=== PATIENT | male | born 1960 | race Caucasian/White ===

== ENCOUNTER → 2017-10-20 | Outpatient (CLI) | payer BC | END | disposition home or self-care (01) | LOC: LABWHC1 17:14 | PROVIDERS: ATTEND Orthopaedic Surgery | DX: Z01.812 Encounter for preprocedural laboratory examination (principal) | CPT/HCPCS: 87070 ==

== ENCOUNTER 2017-10-31 05:40 | Day surgery (SDC) | payer BC, OTHER ==
[2017-10-25 14:42] VITALS: BMI 28.3
--- NOTE | 2017-10-30 13:19 | HP ---
HISTORY AND PHYSICAL REASON FOR ADMISSION: Surgery scheduled for 10/31/2017. Keith Espinoza is a 57-year-old patient seen with symptomatic right knee osteoarthritis. We discussed options. He elected to proceed with right total knee arthroplasty. Consent regarding the procedure was obtained. Medical clearance provided by Dr. Lee Berrios. PAST MEDICAL HISTORY: Hypertension. PAST SURGICAL HISTORY: Herniorrhaphy, left total knee arthroplasty. MEDICATIONS: Lisinopril/hydrochlorothiazide. ALLERGIES: BENADRYL. SOCIAL HISTORY: Patient denies tobacco use. PHYSICAL EXAMINATION: Evaluation of the right knee range of motion is -3 to 115 degrees. Tenderness medial joint line. Positive medial Jojo's. Crepitus along the medial patellofemoral compartments with range of motion. Pain with patellofemoral compression. Ligaments stable. Hip rotation without pain. Distal neurovascular exam intact. RADIOGRAPHS: Right knee severe medial moderate patellofemoral compartment osteoarthritis. IMPRESSION: 1. Right knee osteoarthritis. 2. Hypertension. PLAN: Right total knee arthroplasty. Surgery scheduled 10/31/2017. MMODL / IJN: [id number] /
[~2017-10-31 05:40] MED LIST: ACETAMINOPHEN TAB 500 MG TAB PO ONE; DEXAMETHASONE SOD PHOSPHATE 10 MG/ML 1 ML VIAL IV ONE; LACTATED RINGERS 1,000 ML IV SCH; LIDOCAINE 1% 20 ML VIAL (10MG/ML) FOR IV START INTRADERMA PRN; MELOXICAM 7.5 MG TAB PO ONE; MIDAZOLAM 2 MG/2 ML VIAL IV PRN; ONDANSETRON 4 MG/2 ML VIAL IVP ONE; TRANEXAMIC ACID 1,000 MG in SODIUM CHLORIDE 0.9% 50 ML IVPB ONE; ceFAZolin IN SWFI 2 GM/20 ML SYRINGE IVP ONE; fentaNYL (PF) 50 MCG/ML 2 ML AMP IV PRN
[2017-10-31 06:23] VITALS: RESP 16
[2017-10-31] MEDS ORDERED: MIDAZOLAM 2 MG/2 ML VIAL ONE ×2 (06:30→07:08)
[2017-10-31] MEDS ORDERED: ONDANSETRON 4 MG/2 ML VIAL ONE (06:31)
[2017-10-31] MEDS ORDERED: fentaNYL (PF) 50 MCG/ML 2 ML AMP IV ONE (06:40)
[2017-10-31] MEDS ORDERED: GABAPENTIN 300 MG CAP PO STA (06:56)
[2017-10-31] MEDS ORDERED: ROPIVACAINE 1,100 MG, SODIUM CHLORIDE 0.9% 330 ML MISCELLANE PRN ×2 (07:00)
[2017-10-31] MEDS ORDERED: ROPIVACAINE 246.25 MG, EPINEPHrine 0.5 MG, KETOROLAC 30 MG, cloNIDine HCL/PF 80 MCG, WA... MISCELLANE ONE ×5 (07:05)
[2017-10-31] MEDS ORDERED: TRANEXAMIC ACID 1,000 MG/10 ML VIAL ONE (07:08)
[2017-10-31] MEDS ORDERED: fentaNYL (PF) 50 MCG/ML 2 ML AMP ONE (07:08)
[2017-10-31] MEDS ORDERED: LIDOCAINE 1% INJ 10MG/ML (20 ML MDV) ONE (07:08)
[2017-10-31] MEDS ORDERED: PROPOFOL 10 MG/ML 20 ML VIAL IV ONE (07:08)
[2017-10-31] MEDS ORDERED: SODIUM CHLORIDE 0.9% 100 ML BAG ONE (07:08)
[2017-10-31] MEDS ORDERED: SUCCINYLCHOLINE CHLORIDE 100 MG/5 ML SYR IV ONE (07:08)
[2017-10-31] MEDS ORDERED: LACTATED RINGERS 1,000 ML IV ONE ×2 (08:05→11:41)
[2017-10-31] MEDS ORDERED: ceFAZolin 3,000 MG in SODIUM CHLORIDE 0.9% IRRIGATIO 3,000 ML IRRIGATION ONE (08:06)
--- NOTE | 2017-10-31 08:44 | P.ONQ ---
Anesthesiology Proc Note - PNB - Peripheral Nerve Block Performed Right Adductor Canal Infusion Time Out Performed: Yes (635) Procedure Start Time: 06:36 Procedure Stop Time: 06:45 Indication: Acute Post-Operative Pain, Dx/Pain Location (Right Knee Pain), Requested by physician Sedation Type: Sedate with meaningful contact maintained Preparation: Sterile Prep Position: Supine Catheter: Indwelling Needle Types: On-Q Needle Size: 100mm (4") Needle Gauge: 21 Technique: Ultrasound Injectate: 0.5% Ropivacaine (see comment for volume) (30ml) Blood Aspirated: No Pain Paresthesia on Injection Noted: No Resistance on Injection: Normal Events: Uneventful and Well Tolerated
--- NOTE | 2017-10-31 09:08 | P.OP ---
Date of Procedure: 10/31/17 Preoperative Diagnosis: Right knee osteoarthritis Postoperative Diagnosis: Right knee osteoarthritis Procedure(s) Performed: Right total knee arthroplasty Implants: 1. Microport evolution MP CS/CR size 6 cemented femoral component 2. Microport evolution MP 6+ right cemented keeled tibial baseplate 3. Microport evolution MP CS size 6 right 14 mm polyethylene tibial insert 4. Microport advance 41 mm all polyethylene cemented patella Anesthesia: GETA, regional (Abductor canal catheter), local Surgeon: Franki De La Garza De Alcoholizer #1: Benedicto Padilla Estimated Blood Loss (ml): 50 Pathology: other (On) Condition: stable Disposition: PACU Indications for Procedure: 57-year-old patient seen with symptomatic right knee osteoarthritis. After treatment options were discussed, he elected to proceed with total knee arthroplasty. Operative Findings: see description of procedure Description of Procedure: Patient was taken to the operative suite after having and adductor canal catheter placed by the department of anesthesia. Patient underwent a general anesthetic by the department of anesthesia. Patient was given preoperative IV intake antibiotics and TXA. A well-padded tourniquet was placed about the [] lower extremity. The lower extremity was then prepped and draped in the normal sterile orthopedic fashion. The extremity was elevated, a tourniquet was insufflated to 300. A standard anterior incision was made sharply through skin. Dissection was taken down through the subcutaneous soft tissues down to the extensor mechanism. A medial arthrotomy was performed, patella was everted and knee was flexed. There was advanced osteoarthritis noted. A proximal tibial cutting guide was positioned. Proximal tibial cut was made. A distal intramedullary femoral cutting guide was positioned, distal femoral cut made. We placed the appropriate sizing guide and selected the appropriate size. A distal 4-in-1 femoral cutting block was positioned, distal femoral cuts were made. We now placed a trial femoral component into position, along with an appropriate size tibial tray and insert. We now took the knee through range of motion and had full extension good flexion and good overall soft tissue balance noted. The patella was everted and a flush cut made with patellar quad tendon. We templated the patella, appropriate drill holes were made. An appropriate trial patella was positioned, knee was taken through full range of motion with the patella tracking very nicely. The trial patella was removed. Drill holes were made through the femoral component. All trial components were removed after marking off the appropriate rotation of the tibia. Retractors were now positioned along the proximal tibia. An appropriate keel punch was made with the appropriate size tibial guide. At this point appropriate size implants were chosen and opened. The joint was irrigated copiously with pulse lavage mechanical irrigation. The deep soft tissues were infiltrated local analgesic. We mixed antibiotic methylmethacrylate. Once the methyl methacrylate was ready, the tibial component was cemented into place removing any excess methylmethacrylate. The femoral component was cemented into place removing the removing any excess methylmethacrylate. We then inserted the appropriate size polyethylene tibial insert. We made sure that it was locked into position. We took the knee into full extension, and then back in a flexion making sure we had removed any excess methylmethacrylate. The patellar component was then cemented down and secured with clamp. Excess methylmethacrylate removed. We kept the knee in full extension, patellar clamp in position until methylmethacrylate had hardened. Once it had hardened the patellar clamp was removed. The knee was taken through full range of motion. The patella tracked nicely. There was good soft tissue balancing. The tourniquet was now released. A second gram of TXA was given. Additional hemostasis was achieved via electrocautery. The wound was irrigated with pulse lavage mechanical irrigation. The superficial soft tissues were infiltrated with local analgesic. The extensor mechanism was repaired with Vicryl. We checked the repair with range of motion and it was stable. The subcutaneous soft tissues were repaired with Vicryl in layers. The skin was approximated with pernio/ Dermabond. Sterile dressings were applied followed by loose web roll and Heath bandage. The patient was transferred to a bed, and taken to recovery in stable and satisfactory condition. Cachorro TEIXEIRA assisted with the procedure.
[2017-10-31 09:34] VITALS: TEMP 97.6
[2017-10-31] MEDS ORDERED: HYDROcodone/APAP 7.5-325MG 1 EACH TAB PO PRN (09:38)
[2017-10-31] MEDS ORDERED: HYDROmorphone 1 MG/ML 1 ML SYRINGE IM PRN ×2 (09:40)
[2017-10-31] MEDS ORDERED: LACTATED RINGERS 1,000 ML IV SCH (09:45)
[2017-10-31] MEDS ORDERED: HYDROmorphone 0.5 MG/0.5 ML SYRINGE IVP ONE (10:02)
[2017-10-31] MEDS ORDERED: ceFAZolin 1,000 MG in DEXTROSE/WATER 1 50ML.BAG IVPB ONE (11:00)
[2017-10-31] MEDS ORDERED: ceFAZolin IN SWFI 2 GM/20 ML SYRINGE IVP SCH ×2 (12:30→15:30)
[2017-10-31] MEDS ORDERED: traMADol 50 MG TAB PO SCH (13:00)
--- NOTE | 2017-10-31 13:14 | XR ---
EXAMINATION TYPE: XR knee limited RT DATE OF EXAM: 10/31/2017 COMPARISON: NONE HISTORY: 57-year-old male status post right TKA TECHNIQUE: 2 views FINDINGS: Images show placement of right total knee arthroplasty. Both distal femoral and proximal tibial compo nents of the prosthesis are well seated without periprosthetic fracture. Alignment grossly anatomic. Anterior soft tissue air with soft tissue swelling as well as intra-articular air in joint effusion r elated to recent operation. IMPRESSION: Uncomplicated postoperative appearance right total knee arthroplasty.
[2017-10-31 14:55] VITALS: BP 114/61; PULSE 69
== END 2017-10-31 15:49 | disposition home health service (06) ==
LOC: OR 05:40
PROVIDERS: ATTEND Orthopaedic Surgery
DX: M17.11 Unilateral primary osteoarthritis, right knee (principal); Z96.651 Presence of right artificial knee joint; I10 Essential (primary) hypertension; F17.200 Nicotine dependence, unspecified, uncomplicated; Z79.899 Other long term (current) drug therapy; Z91.09 Other allergy status, other than to drugs and biological substances
CPT/HCPCS: 97116; 97161; 88300; 73560; 27447; C1776; C1713; C1772; J2250; J0171; J1100; J2405; J0690 ×3; J3010; J1885; J2795; J0735; J1170

== ENCOUNTER 2018-10-24 08:59 | Emergency (ER) | payer BC, OTHER ==
[2018-10-24 09:07] VITALS: TEMP 97.6
[2018-10-24] MEDS ORDERED: KETOROLAC 60 MG/2 ML VIAL IM STA (09:27)
--- NOTE | 2018-10-24 10:21 | XR ---
EXAMINATION TYPE: XR Hip LT and AP Pelvis DATE OF EXAM: 10/24/2018 COMPARISON: NONE HISTORY: Pain, trauma TECHNIQUE: A single AP view of the pelvis is obtained. Two views of the left hip are obtained. FINDINGS: There is no acute fracture/dislocation evident in the pelvis. The hip and sacroiliac join ts appear symmetric and unremarkable. The overlying soft tissue appears unremarkable. Two views of left hip show no acute fracture or dislocation. No focal lytic or sclerotic lesion seen in the proximal left femur. The overlying soft tissue is unremarkable. IMPRESSION: There is no acute fracture or dislocation in the pelvis or left hip.
--- NOTE | 2018-10-24 10:33 | CT ---
EXAMINATION TYPE: CT brain cspine wo con DATE OF EXAM: 10/24/2018 COMPARISON: CT brain dated 09/17/2009. HISTORY: Fall injury with headache and neck pain. CT DLP: 1478.9 mGycm. Automated Exposure Control for Dose Reduction was Utilized. TECHNIQUE: CT scan of the head and cervical spine are performed without contrast. FINDINGS: There is no acute intracranial hemorrhage, mass effect, or midline shift identified. The ventricles and sulci are within normal limits in size. [place]-white matter differentiation is maintain ed. The globes are intact and the visualized sinuses are clear. The calvarium is intact. Cervical spine is visualized in its entirety from C1 through upper thoracic levels and demonstrates s atisfactory alignment without evidence of acute fracture or dislocation. Prevertebral soft tissue ap pears within normal limits. The C1-C2 articulation is within normal limits on the coronal images. V ertebral body heights are maintained. Mild disc space narrowing and spurring C5-C6 level. Moderate di sc space narrowing and spurring C6-C7 level. Posterior spur disc complex effacing the anterior thecal sac left paracentral location C6-C7 level on sagittal and axial images. Thyroid gland is normal in s ize. Lung apices show respiratory motion artifact degradation IMPRESSION: 1. There is no acute fracture or dislocation evident in the cervical spine. 2. No acute intracranial hemorrhage, mass effect, or midline shift is seen.
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
[2018-10-24 11:21] VITALS: BP 133/92; PULSE 63; RESP 16
== END 2018-10-24 11:26 | disposition home or self-care (01) ==
LOC: EC 08:59
DX: S16.1XXA Strain of muscle, fascia and tendon at neck level, initial encounter (principal); S70.02XA Contusion of left hip, initial encounter; S00.03XA Contusion of scalp, initial encounter; S40.811A Abrasion of right upper arm, initial encounter; N42.9 Disorder of prostate, unspecified; M19.90 Unspecified osteoarthritis, unspecified site; Z88.8 Allergy status to other drugs, medicaments and biological substances; Z79.899 Other long term (current) drug therapy; Z96.652 Presence of left artificial knee joint; W01.0XXA Fall on same level from slipping, tripping and stumbling without subsequent striking against object, initial encounter; Y93.89 Activity, other specified; Y92.69 Other specified industrial and construction area as the place of occurrence of the external cause; Y99.0 Civilian activity done for income or pay
CPT/HCPCS: 73502; 72125; 70450; 99284; 96372; J1885

== ENCOUNTER → 2022-03-16 | Outpatient (CLI) | payer BC ==
--- NOTE | 2022-03-17 07:10 | XR ---
EXAMINATION TYPE: XR finger RT DATE OF EXAM: 03/16/2022 4:20 PM INDICATION: Patient age:Male; 61 years old; Reason for study: M67.40 GANGLION, UNSPECIFIED SITE; COMPARISON: None TECHNIQUE: Frontal, lateral and oblique views of the third digit right hand were obtained. FINDINGS: Mild osteophyte formation of the distal interphalangeal joint of the third digit. Normal al ignment of the visualized joints. No acute osseous pathology is identified. No evidence of soft tis mary swelling. IMPRESSION: 1. No acute osseous pathology. 2. Mild osteoarthrosis of the third digit distal interphalangeal joint.
== END | disposition home or self-care (01) ==
LOC: RADXRMAIN 16:09
PROVIDERS: ATTEND Family Medicine
DX: M19.041 Primary osteoarthritis, right hand (principal); M67.441 Ganglion, right hand

== ENCOUNTER → 2022-10-15 | Outpatient (CLI) | payer BC ==
--- NOTE | 2022-10-17 13:33 | PE ---
EXAMINATION TYPE: PET CT fusion skull to thigh DATE OF EXAM: 10/15/2022 COMPARISON: No pertinent comparisons at this location Prior PET/CT: None at this location HISTORY: Hepatic cancer TECHNIQUE: Following the intravenous administration of 11 mCi of F-18 FDG, whole body images are per formed from the skull base to the midthigh. Images are reviewed on the computer in the coronal, axia l, and sagittal planes. Reconstructed rotating images are created on independent workstation and rev iewed on the computer. A localization and attenuation correction CT is performed in conjunction wit h the PET scan. DLP: 452.79 mGycm SCAN: Initial Blood glucose: 86 mg/dL Average Mediastinum SUV: 1.47 Average Liver SUV: 1.76 FINDINGS: NECK: No abnormal uptake THORAX: No abnormal uptake ABDOMEN: There are scattered areas of increased uptake within the liver including posterior medial ri ght lobe, image 109 SUV value 3.88 right mid liver, image 114 SUV value 2.68. Along the anterior abdominal wall within some ascites is focal intense uptake which may be a curvilin ear area of intraperitoneal and/or omental metastasis, example image 129 SUV value 4.13. This area ex tends through the anterior abdomen into the anterior pelvic wall including the left side, example mei ge 183, SUV value of 5.79. Uptake is through the mesentery above the sigmoid colon and urinary bladde r, example image 200 SUV value 5.52. There is a focus of radiotracer uncertain location appears to be within the second portion of the duo denum with an SUV value of 4.04. Image 132. There is a focus of radiotracer accumulation at the tail of the pancreas with an SUV value of 3.24, i mage 126. This may be the patient's primary. PELVIS: Please see above abdomen discussion with intraperitoneal abdomen and pelvic metastasis. OSSEOUS STRUCTURES: No abnormal uptake LOCALIZATION CT: There is a small left pleural effusion. Ascites is present throughout the abdomen an d pelvis. COMPARISON: None IMPRESSION: 1. Multiple intra-abdominal and intrapelvic areas suspicious for metastasis include at least 2 foci w ithin the right lobe liver and fairly extensive omental metastasis along the anterior peritoneal wall within the ascites of the abdomen and pelvis discussed above. 2. 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 3. An additional focus of radiotracer may be within the second portion of the duodenum. Metastatic le cruzito could be considered.
== END | disposition home or self-care (01) ==
LOC: RADPETMAIN 16:47
PROVIDERS: ATTEND Internal Medicine
DX: C25.2 Malignant neoplasm of tail of pancreas (principal); R18.8 Other ascites
CPT/HCPCS: 78815; A9552

== ENCOUNTER 2022-10-31 09:19 | Observation (INO) | payer BC ==
[2022-10-31] MEDS ORDERED: ACETAMINOPHEN TAB 500 MG TAB PO STA (09:42)
--- NOTE | 2022-10-31 09:45 | ED ---
General Adult HPI - General Chief complaint: Weakness Stated complaint: fever, chemo pt Time Seen by Provider: 10/31/22 09:24 Source: patient, family, RN notes reviewed Mode of arrival: wheelchair Limitations: no limitations - History of Present Illness Initial comments: Patient is a pleasant 62-year-old male presenting to the emergency department with concern for fever. Patient is on chemotherapy for pancreatic cancer, last was 2 days ago. Patient woke at 4:30 this morning with fever. Patient has fatigue and chills and myalgias. Patient has had some diarrhea. Patient does have to take MiraLAX to have bowel movements and does get diarrhea normally following this as he did this time. No cough or dyspnea. No upper respiratory symptoms. Patient does have some abdominal discomfort which she attributes to his abdominal distention. Patient has plan for paracentesis next week. Patient does have history of previous similar abdominal discomfort. - Related Data Home Medications Medication Instructions Recorded Confirmed Finasteride [Proscar] 5 mg PO HS 03/26/15 10/28/22 Morphine Sulfate [Morphine Sulfate 15 mg PO DAILY 10/28/22 10/28/22 ER] Morphine Sulfate [Morphine Sulfate 30 mg PO BID 10/28/22 10/28/22 ER] Ondansetron Odt [Zofran Odt] 4 mg PO TID 10/28/22 10/28/22 Pantoprazole [Protonix] 40 mg PO DAILY 10/28/22 10/28/22 Allergies Allergy/AdvReac Type Severity Reaction Status Date / Time diphenhydramine HCl AdvReac Hallucinati Verified 10/31/22 09:23 [From Rupa] ons Review of Systems ROS Statement: Those systems with pertinent positive or pertinent negative responses have been documented in the HPI. ROS Other: All systems not noted in ROS Statement are negative. Constitutional: Reports: fever, chills Eyes: Denies: eye pain ENT: Denies: ear pain Respiratory: Denies: cough, dyspnea Cardiovascular: Denies: chest pain Endocrine: Reports: fatigue Gastrointestinal: Reports: as per HPI Genitourinary: Denies: dysuria Skin: Denies: rash Neurological: Reports: weakness Past Medical History Past Medical History: Cancer, GERD/Reflux, Osteoarthritis (OA), Prostate Disorder Additional Past Medical History / Comment(s): 04/07/15 Pt admitted to floor s/p total L knee arthroplasty. Other HX: elevated PSA, PAIN IN BILATERAL KNEES. 10/31-pancreatic cancer History of Any Multi-Drug Resistant Organisms: None Reported Past Surgical History: Appendectomy, Hernia Repair Additional Past Surgical History / Comment(s): 04/07/15 Total L knee arthroplasty. Other SX HX: HERNIA: BILATERAL ING & UMBILICAL. HAD RUPTURED APPENDIX:IN & OUT OF HOSPITAL WITH SEVERE ABD INFECTION AND THEN REMOVAL OF APPENDIX @ AGE 14 YR. Past Anesthesia/Blood Transfusion Reactions: No Reported Reaction Past Psychological History: No Psychological Hx Reported Smoking Status: Never smoker Past Alcohol Use History: Occasional Past Drug Use History: None Reported - Past Family History Mother Family Medical History: Cancer, CVA/TIA Additional Family Medical History / Comment(s): Mother has had TIA's. breast cancer hx Brother(s) Family Medical History: Diabetes Mellitus, Hypertension Father Family Medical History: Hypertension Additional Family Medical History / Comment(s): Father is 84 yrs old Sister(s) Family Medical History: No Reported History Daughter(s) Family Medical History: No Reported History Son(s) Family Medical History: No Reported History General Exam Limitations: no limitations General appearance: alert, in no apparent distress Head exam: Present: normocephalic Eye exam: Present: normal appearance Neck exam: Present: normal inspection Respiratory exam: Present: normal lung sounds bilaterally Cardiovascular Exam: Present: regular rate, normal rhythm GI/Abdominal exam: Present: soft, distended, tenderness (Mild diffuse tenderness). Absent: guarding, rebound, rigid Extremities exam: Present: normal inspection Neurological exam: Present: alert Psychiatric exam: Present: normal affect, normal mood Skin exam: Present: normal color. Absent: erythema Course Vital Signs 10/31/22 10/31/22 10/31/22 09:20 10:37 12:00 Temperature 100.1 F H 99.1 F Pulse Rate 104 H 82 Respiratory 22 18 Rate Blood Pressure 111/76 116/72 O2 Sat by Pulse 97 Oximetry EKG Findings - EKG Results: EKG: interpreted by ERMD, sinus rhythm, normal axis, normal QRS, normal ST/T Medical Decision Making - Medical Decision Making Was pt. sent in by a medical professional or institution (, PA, COUNTER CLERK, urgent care, hospital, or senior living...) When possible be specific @ -No Did you speak to anyone other than the patient for history (EMS, parent, family, police, friend...)? What history was obtained from this source @ - is present and helps provide history including oncological history Did you review nursing and triage notes (agree or disagree)? Why? @ -I reviewed and agree with nursing and triage notes Were old charts reviewed (outside hosp., previous admission, EMS record, old EKG, old radiological studies, urgent care reports/EKG's, senior living records)? Report findings @ -No old charts were reviewed Differential Diagnosis (chest pain, altered mental status, abdominal pain women, abdominal pain men, vaginal bleeding, weakness, fever, dyspnea, syncope, headache, dizziness, GI bleed, back pain, seizure, CVA, palpatations, mental health, musculoskeletal)? @ -Differential Abdominal Pain Men: Appendicitis, cholecystitis, diverticulosis, ischemic bowel, pancreatitis, hepatitis, UTI, gastroenteritis, AAA, incarcerated hernia, bowel obstruction, constipation, inflammatory bowel, hepatitis, peptic ulcer disease, splenic infarction, perforated viscus, testicular torsion, this is not meant to be an all-inclusive list EKG interpreted by me (3pts min.). @ -As above X-rays interpreted by me (1pt min.). @ -Chest x-ray shows small bilateral effusions CT interpreted by me (1pt min.). @ -None done U/S interpreted by me (1pt. min.). @ -None done What testing was considered but not performed or refused? (CT, X-rays, U/S, labs)? Why? @ -Considered further imaging of the abdomen however patient states abdominal discomfort is chronic and similar to previous What meds were considered but not given or refused? Why? @ -None Did you discuss the management of the patient with other professionals (professionals i.e. , PA, COUNTER CLERK, lab, RT, psych nurse, director social, planner, teacher, disability hearing officer, supportive employment case manager)? Give summary @ -His peak with practitioner Neal covering with oncology who recommends admission and cefepime. He will look into patient having paracentesis tomorrow. Case also discussed with Dr. amezquita, who will admit covering Dr. Redmond Was smoking cessation discussed for >3mins.? @ -No Was critical care preformed (if so, how long)? @ -No Were there social determinants of health that impacted care today? How? (Homelessness, low income, unemployed, alcoholism, drug addiction, transportation, low edu. Level, literacy, decrease access to med. care, long term, rehab)? @ -No Was there de-escalation of care discussed even if they declined (Discuss DNR or withdrawal of care, Hospice)? DNR status @ -No What co-morbidities impacted this encounter? (DM, HTN, Smoking, COPD, CAD, Cancer, CVA, ARF, Chemo, Hep., AIDS, mental health diagnosis, sleep apnea, morbid obesity)? @ -None Was patient admitted / discharged? Hospital course, mention meds given and route, prescriptions, significant lab abnormalities, going to OR and other pertinent info. @ -Patient evaluated again and feeling somewhat better. Abdominal discomfort unchanged and chronic. Patient family updated on results and plan. Patient will be admitted with IV antibiotics and oncology consult. Undiagnosed new problem with uncertain prognosis? @ -No Drug Therapy requiring intensive monitoring for toxicity (Heparin, Nitro, Insulin, Cardizem)? @ -No Were any procedures done? @ -No Diagnosis/symptom? @ -Fever Acute, or Chronic, or Acute on Chronic? @ -Acute Uncomplicated (without systemic symptoms) or Complicated (systemic symptoms)? @ -default Side effects of treatment? @ -No Exacerbation, Progression, or Severe Exacerbation? @ -No Poses a threat to life or bodily function? How? (Chest pain, USA, DC, pneumonia, PE, COPD, DKA, ARF, appy, cholecystitis, CVA, Diverticulitis, Homicidal, Suicidal, threat to staff... and all critical care pts) @ -No - Lab Data Result diagrams: 10/31/22 09:48 10/31/22 09:48 Lab Results 10/31/22 10/31/22 10/31/22 Range/Units 09:48 09:48 09:48 WBC 13.8 H (3.8-10.6) k/uL RBC 5.00 (4.30-5.90) m/uL Hgb 14.0 (13.0-17.5) gm/dL Hct 42.6 (39.0-53.0) % MCV 85.3 (80.0-100.0) fL MCH 28.1 (25.0-35.0) pg MCHC 32.9 (31.0-37.0) g/dL RDW 12.2 (11.5-15.5) % Plt Count 184 (150-450) k/uL MPV 7.5 Neutrophils % 94 % Lymphocytes % 3 % Monocytes % 1 % Eosinophils % 1 % Basophils % 0 % Neutrophils # 13.0 H (1.3-7.7) k/uL Lymphocytes # 0.4 L (1.0-4.8) k/uL Monocytes # 0.2 (0-1.0) k/uL Eosinophils # 0.2 (0-0.7) k/uL Basophils # 0.0 (0-0.2) k/uL PT 10.9 (9.0-12.0) sec INR 1.0 (<1.2) APTT 26.5 (22.0-30.0) sec Sodium (137-145) mmol/L Potassium (3.5-5.1) mmol/L Chloride (98-107) mmol/L Carbon Dioxide (22-30) mmol/L Anion Gap mmol/L BUN (9-20) mg/dL Creatinine (0.66-1.25) mg/dL Est GFR (CKD-EPI)AfAm (>60 ml/min/1.73 sqM) Est GFR (CKD-EPI)NonAf (>60 ml/min/1.73 sqM) Glucose (74-99) mg/dL Plasma Lactic Acid [place] (0.7-2.0) mmol/L Calcium (8.4-10.2) mg/dL Total Bilirubin (0.2-1.3) mg/dL AST (17-59) U/L ALT (4-49) U/L Alkaline Phosphatase (38-126) U/L Total Protein (6.3-8.2) g/dL Albumin (3.5-5.0) g/dL Urine Color Yellow Urine Appearance Cloudy (Clear) Urine pH 8.0 (5.0-8.0) Ur Specific [place] 1.025 (1.001-1.035) Urine Protein 1+ H (Negative) Urine Glucose (UA) Negative (Negative) Urine Ketones Trace H (Negative) Urine Blood Negative (Negative) Urine Nitrite Negative (Negative) Urine Bilirubin Negative (Negative) Urine Urobilinogen <2.0 (<2.0) mg/dL Ur Leukocyte Esterase Negative (Negative) Urine RBC 2 (0-5) /hpf Urine WBC 4 (0-5) /hpf Amorphous Sediment Rare H (None) /hpf Urine Bacteria Rare H (None) /hpf Urine Mucus Occasional H (None) /hpf Influenza Type A (PCR) (Not Detectd) Influenza Type B (PCR) (Not Detectd) RSV (PCR) (Not Detectd) SARS-CoV-2 (PCR) (Not Detectd) 10/31/22 10/31/22 10/31/22 Range/Units 09:48 09:48 09:48 WBC (3.8-10.6) k/uL RBC (4.30-5.90) m/uL Hgb (13.0-17.5) gm/dL Hct (39.0-53.0) % MCV (80.0-100.0) fL MCH (25.0-35.0) pg MCHC (31.0-37.0) g/dL RDW (11.5-15.5) % Plt Count (150-450) k/uL MPV Neutrophils % % Lymphocytes % % Monocytes % % Eosinophils % % Basophils % % Neutrophils # (1.3-7.7) k/uL Lymphocytes # (1.0-4.8) k/uL Monocytes # (0-1.0) k/uL Eosinophils # (0-0.7) k/uL Basophils # (0-0.2) k/uL PT (9.0-12.0) sec INR (<1.2) APTT (22.0-30.0) sec Sodium 135 L (137-145) mmol/L Potassium 4.3 (3.5-5.1) mmol/L Chloride 99 (98-107) mmol/L Carbon Dioxide 27 (22-30) mmol/L Anion Gap 9 mmol/L BUN 17 (9-20) mg/dL Creatinine 0.71 (0.66-1.25) mg/dL Est GFR (CKD-EPI)AfAm >90 (>60 ml/min/1.73 sqM) Est GFR (CKD-EPI)NonAf >90 (>60 ml/min/1.73 sqM) Glucose 126 H (74-99) mg/dL Plasma Lactic Acid [place] 0.9 (0.7-2.0) mmol/L Calcium 8.1 L (8.4-10.2) mg/dL Total Bilirubin 1.0 (0.2-1.3) mg/dL AST 43 (17-59) U/L ALT 26 (4-49) U/L Alkaline Phosphatase 84 (38-126) U/L Total Protein 5.9 L (6.3-8.2) g/dL Albumin 3.4 L (3.5-5.0) g/dL Urine Color Urine Appearance (Clear) Urine pH (5.0-8.0) Ur Specific [place] (1.001-1.035) Urine Protein (Negative) Urine Glucose (UA) (Negative) Urine Ketones (Negative) Urine Blood (Negative) Urine Nitrite (Negative) Urine Bilirubin (Negative) Urine Urobilinogen (<2.0) mg/dL Ur Leukocyte Esterase (Negative) Urine RBC (0-5) /hpf Urine WBC (0-5) /hpf Amorphous Sediment (None) /hpf Urine Bacteria (None) /hpf Urine Mucus (None) /hpf Influenza Type A (PCR) Not Detected (Not Detectd) Influenza Type B (PCR) Not Detected (Not Detectd) RSV (PCR) Not Detected (Not Detectd) SARS-CoV-2 (PCR) Not Detected (Not Detectd) Disposition Clinical Impression: Fever Disposition: ADMITTED IP TO THIS HOSP Is patient prescribed a controlled substance at d/c from ED?: No Referrals: Lee Berrios DO [Primary Care Provider] - 1-2 days Time of Disposition: 13:32
[2022-10-31 10:20] LABS: Basophils % (A) 0 %; Eosinophils # (A) 0.2 k/uL (0-0.7); Eosinophils % (A) 1 %; HCT 42.6 % (39.0-53.0); Lymphocytes # (A) 0.4 k/uL (1.0-4.8); Lymphocytes % (A) 3 %; MCH 28.1 pg (25.0-35.0); MCHC 32.9 g/dL (31.0-37.0); MCV 85.3 fL (80.0-100.0); Mean Platelet Volume 7.5; Monocytes # (A) 0.2 k/uL (0-1.0); Monocytes % (A) 1 %; Neutrophils % (A) 94 %; Platelet Count 184 k/uL (150-450); RDW 12.2 % (11.5-15.5); WBC 13.8 k/uL (3.8-10.6)
[2022-10-31 10:23] LABS: ALT 26 U/L (4-49); AST 43 U/L (17-59); African American GFR (CKD) >90 (>60 ml/min/1.73 sqM); Albumin 3.4 g/dL (3.5-5.0); Alkaline Phosphatase 84 U/L (38-126); Anion Gap 9 mmol/L; Blood Urea Nitrogen 17 mg/dL (9-20); Calcium 8.1 mg/dL (8.4-10.2); Carbon Dioxide 27 mmol/L (22-30); Chloride 99 mmol/L (98-107); Glucose 126 mg/dL (74-99); Non-African American GFR(CKD) >90 (>60 ml/min/1.73 sqM); Potassium 4.3 mmol/L (3.5-5.1); Sodium 135 mmol/L (137-145); Total Protein 5.9 g/dL (6.3-8.2)
[2022-10-31] MEDS: SODIUM CHLORIDE 0.9% 1,000 ML IV SCH ×3 (10:30→13:49)
[2022-10-31] MEDS: SODIUM CHLORIDE 0.9% 500 ML 500 ML IV SCH ×2 (10:31→11:59)
[2022-10-31 10:45] LABS: Partial Thromboplastin Time 26.5 sec (22.0-30.0); Prothrombin Time 10.9 sec (9.0-12.0)
[2022-10-31 11:53] LABS: Amorphous Sediment,Urine Rare /hpf; Appearance,Urine Cloudy (Clear); Bacteria,Urine Rare /hpf; Bilirubin,Urine Negative (Negative); Blood,Urine Negative (Negative); Color,Urine Yellow; Glucose,Urine (UA) Negative (Negative); Ketones,Urine Trace (Negative); Leukocyte Esterase,Urine Negative (Negative); Mucus,Urine Occasional /hpf; Nitrite,Urine Negative (Negative); Protein,Urine 1+ (Negative); RBC,Urine 2 /hpf (0-5); Specific Gravity,Urine 1.025 (1.001-1.035); Urobilinogen,Urine <2.0 mg/dL (<2.0); WBC,Urine 4 /hpf (0-5)
--- NOTE | 2022-10-31 12:06 | XR ---
EXAMINATION TYPE: XR chest 2V DATE OF EXAM: 10/31/2022 12:01 PM COMPARISON: PET/CT 10/15/2022, chest radiograph 03/21/2015 TECHNIQUE: XR chest 2V Frontal and lateral views of the chest. CLINICAL INDICATION:Male, 62 years old with history of Fever; FINDINGS: Lungs/Pleura: Blunting of both costophrenic angles. No focal consolidation or pneumothorax. Pulmonary vascularity: Unremarkable. Heart/mediastinum: Cardiomediastinal silhouette is prominent in size. Musculoskeletal: Multiple level degenerative disc disease changes seen throughout the spine. IMPRESSION: Small bilateral pleural effusions with left greater than right.
[2022-10-31] MEDS ORDERED: NALOXONE 0.4 MG/ML 1 ML VIAL IV PRN (13:33)
[2022-10-31] MEDS ORDERED: ACETAMINOPHEN TAB 325 MG TAB PO PRN (13:33)
[2022-10-31] MEDS ORDERED: HYDROmorphone 0.5 MG/0.5 ML SYRINGE IVP PRN (13:33)
[2022-10-31] MEDS: HYDROmorphone 1 MG/ML 1 ML SYRINGE IVP PRN ×3 (13:49→22:25)
[2022-10-31] MEDS: CEFEPIME 2 GM in SODIUM CHLORIDE 0.9% 100 ML IVPB SCH ×2 (13:52→23:24)
[2022-11-01] MEDS: HYDROmorphone 1 MG/ML 1 ML SYRINGE IVP PRN ×4 (02:20→11:11)
[2022-11-01] MEDS: SODIUM CHLORIDE 0.9% 1,000 ML IV SCH ×2 (06:07→17:21)
[2022-11-01] MEDS: PANTOPRAZOLE 40 MG/10 ML VIAL IV SCH (08:22)
[2022-11-01] MEDS: CEFEPIME 2 GM in SODIUM CHLORIDE 0.9% 100 ML IVPB SCH ×2 (08:22→17:20)
[2022-11-01 09:20] LABS: Basophils # (A) 0.02 X 10*3/uL (0.00-0.10); Basophils % (A) 0.1 %; Eosinophils # (A) 0 X 10*3/uL (0.04-0.35); Eosinophils % (A) 0 %; HCT 39.3 % (39.6-50.0); HGB 12.7 d/dL (12.0-15.0); Lymphocytes # (A) 0.44 X 10*3/uL (0.90-5.00); Lymphocytes % (A) 2.9 %; MCH 27.7 pg (27.0-32.0); MCHC 32.3 d/dL (32.0-37.0); MCV 85.6 FL (80.0-97.0); Mean Platelet Volume 10.2 FL (9.5-12.2); Monocytes # (A) 0.05 X 10*3/uL (0.20-1.00); Monocytes % (A) 0.3 %; NRBC Per 100 WBC 0 X 10*3/uL (0.00-0.01); Neutrophils # (A) 14.75 X 10*3/uL (1.80-7.70); Platelet Count 185 X 10*3/uL (140-440); RBC 4.59 X 10*6/uL (4.40-5.60); RDW 12.5 % (11.5-14.5); WBC 15.36 X 10*3/uL (4.50-10.00)
[2022-11-01 09:30] LABS: ALT 30 U/L (10-49); AST 45 U/L (14-35); Albumin 3.2 d/dL (3.8-4.9); Albumin/Globulin Ratio 1.68 Ratio (1.60-3.17); Alkaline Phosphatase 73 U/L (41-126); Amylase 4 U/L (23-121); Blood Urea Nitrogen 13.3 mg/dL (9.0-27.0); Calcium 8.2 mg/dL (8.7-10.3); Carbon Dioxide 23.2 mmol/L (21.6-31.8); Chloride 104 mmol/L (96-109); Globulin 1.9 d/dL (1.6-3.3); Glucose 140 mg/dL (70-110); Lipase 34 U/L (14-60); Potassium 4.4 mmol/L (3.5-5.5); Sodium 139 mmol/L (135-145); Total Bilirubin 0.6 mg/dL (0.3-1.2); Total Protein 5.1 d/dL (6.2-8.2)
[2022-11-01] MEDS ORDERED: ONDANSETRON 4 MG/2 ML VIAL IVP PRN (11:15)
--- NOTE | 2022-11-01 13:42 | US ---
EXAMINATION TYPE: US paracentesis abd w/image DATE OF EXAM: 11/01/2022 12:28 PM CLINICAL INDICATION:Male, 62 years old with history of see IR consult for ordering information.; COMPARISON: 08/26/2011 CT, PET/CT 10/15/2022 ATTENDING: Dr. Loki Martinez PROCEDURE: Informed consent was obtained. The risks of the procedure were extensively explained incl uding risk of damage to surrounding bowel with perforation and need for additional procedures. Proced ure was performed in the ultrasound procedure suite. Ultrasound imaging of the abdomen demonstrate as citic fluid. An appropriate access site was localized to the right lower abdomen. Timeout was taken p er protocol. The skin was prepped and draped in the usual sterile fashion and then locally anesthetiz ed with 1% lidocaine. The peritoneal cavity was then accessed via a 5-Indonesian one-step needle/cathete r. Approximately 6800 cc of blood-tinged/zia fluid was obtained. Samples were sent to the lab for analysis. Postprocedural imaging of the abdomen demonstrate a minimal amount of abdominal fluid. Patient tolerated procedure well without immediate complication. Hemostasis at the procedural site w as obtained with a sterile bandage placed. The patient was monitored in the holding area following th e procedure and was subsequently discharged in stable condition. IMPRESSION: Ultrasound guided paracentesis, with approximately thousand 800 cc of blood-tinged/zia fluid draine d. Pathology results pending. No immediate complications were evident.
--- NOTE | 2022-11-01 13:46 | XR ---
EXAMINATION TYPE: XR chest 2V DATE OF EXAM: 11/01/2022 1:42 PM COMPARISON: Chest radiographs from 10/31/2022 TECHNIQUE: XR chest 2V Frontal and lateral views of the chest. CLINICAL INDICATION:Male, 62 years old with history of r/o aspiration; FINDINGS: Lungs/Pleura: There is no evidence of pleural effusion, focal consolidation, or pneumothorax. Pulmonary vascularity: Unremarkable. Heart/mediastinum: Cardiomediastinal silhouette is unremarkable. Musculoskeletal: No acute osseous pathology. IMPRESSION: No significant change from 10/31/2022. Consider modified barium swallow with speech pathology to rule out aspiration. No evidence radiographically.
[2022-11-01] MEDS: MORPHINE SULFATE IR 15 MG TABLET PO PRN ×2 (14:10→19:52)
[2022-11-01 14:18] VITALS: BMI 28.2
[2022-11-01] MEDS ORDERED: polyethylene glycoL 3350 17 GM POWD.PACK PO PRN (16:59)
[2022-11-01] MEDS ORDERED: DEXTROSE 50% SYRINGE 50 ML IVP PRN ×2 (17:06)
--- NOTE | 2022-11-01 17:08 | P.HPIM ---
History of Present Illness H&P Date: 11/01/22 This is a 62 year old male with history of pancreatic cancer. Presents with abdominal pain sharp in nature and abdominal distention with episode of fever and chills at home. Patient denies any shortness of breath, or cough. No chest pain. No n/v/d noted. Fever on admission 100.1 which has resolved at this time. Patient has history of pancreatic cancer follows with GI Dr. Roach out of [facility]. He was scheduleded for paracentesis on Tuesday which has now been scheduled for today. On admission white count elevated at 13.8 with concern for SBP and patient has been started on IV cefepime and infectious disease consultation. Oncology is also consulted. REVIEW OF SYSTEMS: CONSTITUTIONAL: No fever, no malaise, no fatigue. HEENT: No recent visual problems or hearing problems. Denied any sore throat. CARDIOVASCULAR: No chest pain, orthopnea, PND, no palpitations, no syncope. PULMONARY: No shortness of breath, no cough, no hemoptysis. GASTROINTESTINAL: No diarrhea, no nausea, no vomiting, no abdominal pain. NEUROLOGICAL: No headaches, no weakness, no numbness. HEMATOLOGICAL: Denies any bleeding or petechiae. GENITOURINARY: Denies any burning micturition, frequency, or urgency. MUSCULOSKELETAL/RHEUMATOLOGICAL: Denies any joint pain, swelling, or any muscle pain. ENDOCRINE: Denies any polyuria or polydipsia. The rest of the 14-point review of systems is negative. PHYSICAL EXAMINATION: GENERAL: The patient is alert and oriented x3, not in any acute distress. Well developed, well nourished. HEENT: Pupils are round and equally reacting to light. EOMI. No scleral icterus. No conjunctival pallor. Normocephalic, atraumatic. No pharyngeal erythema. No thyromegaly. CARDIOVASCULAR: S1 and S2 present. No murmurs, rubs, or gallops. PULMONARY: Chest is clear to auscultation, no wheezing or crackles. ABDOMEN: Soft, tender, distended, normoactive bowel sounds. No palpable organomegaly. MUSCULOSKELETAL: No joint swelling or deformity. EXTREMITIES: No cyanosis, clubbing, or pedal edema. NEUROLOGICAL: Gross neurological examination did not reveal any focal deficits. SKIN: No rashes. Assessment and plan Fever and sepsis possible SBP Leukocytosis Abdominal distention due to abdominal ascities History of pancreatic cancer Chronic pain due to above maintained on oral Er/Ir morphine GI prophylaxis Plan Paracentesis scheduled for today Continue on IV antibiotics with blood culture pending, ID following Oncology following Repeat labs in AM Pain control The impression and plan of care has been dictated by Maria Elena Pringle, Nurse Practitioner as directed. Dr. Ignacio MD I have performed a history and physical examination and medical decision making of this patient, discussed the same with the dictator, and agree with the dictators assessment and plan as written, documented as a scribe. Based on total visit time, I have performed more than 50% of this visit. Past Medical History Past Medical History: Cancer, GERD/Reflux, Osteoarthritis (OA), Prostate Disorder Additional Past Medical History / Comment(s): elevated PSA, PAIN IN BILATERAL KNEES. 10/31-pancreatic cancer History of Any Multi-Drug Resistant Organisms: None Reported Past Surgical History: Appendectomy, Hernia Repair Additional Past Surgical History / Comment(s): 04/07/15 Total L knee arthroplasty. Other SX HX: HERNIA: BILATERAL ING & UMBILICAL. HAD RUPTURED APPENDIX:IN & OUT OF HOSPITAL WITH SEVERE ABD INFECTION AND THEN REMOVAL OF APPENDIX @ AGE 14 YR. Past Anesthesia/Blood Transfusion Reactions: No Reported Reaction Past Psychological History: No Psychological Hx Reported Additional Psychological History / Comment(s): Pt resides with his spouse. He is independent. He drives. He already has a walker, shower chair to use post- op. Smoking Status: Never smoker Past Alcohol Use History: Occasional Additional Past Alcohol Use History / Comment(s): Patient states he has only an "occasional" drink. Past Drug Use History: None Reported - Past Family History Mother Family Medical History: Cancer, CVA/TIA Additional Family Medical History / Comment(s): Mother has had TIA's. breast cancer hx Brother(s) Family Medical History: Diabetes Mellitus, Hypertension Father Family Medical History: Hypertension Additional Family Medical History / Comment(s): Father is 84 yrs old Sister(s) Family Medical History: No Reported History Daughter(s) Family Medical History: No Reported History Son(s) Family Medical History: No Reported History Medications and Allergies Home Medications Medication Instructions Recorded Confirmed Type Finasteride [Proscar] 5 mg PO HS 03/26/15 10/31/22 History Morphine Sulfate [Morphine Sulfate 30 mg PO BID 10/28/22 10/31/22 History ER] Pantoprazole [Protonix] 40 mg PO DAILY 10/28/22 10/31/22 History Morphine Sulfate 15 mg PO Q4H PRN 10/31/22 10/31/22 History Ondansetron Odt [Zofran Odt] 8 mg PO TID 10/31/22 10/31/22 History polyethylene glycoL 3350 [Miralax] 17 gm PO DAILY PRN 10/31/22 10/31/22 History Allergies Allergy/AdvReac Type Severity Reaction Status Date / Time diphenhydramine HCl AdvReac Hallucinati Verified 10/31/22 15:21 [From Benadryl] ons Physical Exam Vitals: Vital Signs Temp Pulse Pulse Resp BP BP Pulse Ox 11/01/22 07:30 98.9 F 85 18 111/74 93 L 11/01/22 02:00 98.5 F 105 H 16 121/75 91 L 10/31/22 20:00 98.0 F 86 16 119/78 91 L 10/31/22 15:26 97.6 F 80 16 120/76 94 L 10/31/22 13:39 79 20 103/69 10/31/22 12:00 82 18 116/72 10/31/22 10:37 99.1 F Intake and Output 10/31/22 11/01/22 11/01/22 22:59 06:59 14:59 Intake Total 100 590 Balance 100 590 Intake: Intake, IV Titration 100 Amount Cefepime 2 gm In Sodium 100 Chloride 0.9% 100 ml @ 25 mls/hr IVPB Q8HR ON LICENSE OF [facility] Rx# :[id number] Oral 590 Other: # Voids 2 Weight 99.79 kg Results CBC & Chem 7: 11/01/22 04:41 11/01/22 04:41 Labs: Abnormal Lab Results - Last 24 Hours (Table) 10/31/22 10/31/22 11/01/22 Range/Units 09:48 09:48 04:41 WBC 15.36 H (4.50-10.00) X 10*3/uL Hct 39.3 L (39.6-50.0) % Neutrophils # 14.75 H (1.80-7.70) X 10*3/uL Lymphocytes # 0.44 L (0.90-5.00) X 10*3/uL Monocytes # 0.05 L (0.20-1.00) X 10*3/uL Eosinophils # 0 L (0.04-0.35) X 10*3/uL Sodium 135 L (137-145) mmol/L Glucose 126 H (74-99) mg/dL Calcium 8.1 L (8.4-10.2) mg/dL AST (14-35) U/L Total Protein 5.9 L (6.3-8.2) g/dL Albumin 3.4 L (3.5-5.0) g/dL Amylase (23-121) U/L Urine Protein 1+ H (Negative) Urine Ketones Trace H (Negative) Amorphous Sediment Rare H (None) /hpf Urine Bacteria Rare H (None) /hpf Urine Mucus Occasional H (None) /hpf 11/01/22 Range/Units 04:41 WBC (4.50-10.00) X 10*3/uL Hct (39.6-50.0) % Neutrophils # (1.80-7.70) X 10*3/uL Lymphocytes # (0.90-5.00) X 10*3/uL Monocytes # (0.20-1.00) X 10*3/uL Eosinophils # (0.04-0.35) X 10*3/uL Sodium (137-145) mmol/L Glucose 140 H (74-99) mg/dL Calcium 8.2 L (8.4-10.2) mg/dL AST 45 H (14-35) U/L Total Protein 5.1 L (6.3-8.2) g/dL Albumin 3.2 L (3.5-5.0) g/dL Amylase 4 L (23-121) U/L Urine Protein (Negative) Urine Ketones (Negative) Amorphous Sediment (None) /hpf Urine Bacteria (None) /hpf Urine Mucus (None) /hpf Thrombosis Risk Factor Assmnt - Choose All That Apply Any of the Below Risk Factors Present?: No Other Risk Factors: Yes Each Risk Factor Represents 2 Points: Age 61-74 years, Malignancy Thrombosis Risk Factor Assessment Total Risk Factor Score: 4 Thrombosis Risk Factor Assessment Level: Moderate Risk Assessment and Plan Time with Patient: Greater than 30
[2022-11-01] MEDS: INSULIN ASPART (NovoLOG) 100 UNIT/ML VIAL SQ SCH ×2 (17:41→22:23)
[2022-11-01] MEDS: HYDROcodone/APAP 7.5-325MG 1 EACH TAB PO PRN (17:58)
--- NOTE | 2022-11-01 18:07 | P.CONS ---
History of Present Illness - Reason for Consult Consult date: 11/01/22 pancreatic adenocarcinoma Requesting physician: Rohith Nayak - Chief Complaint fever - History of Present Illness Mr. Espinoza is a 62-year-old gentleman with no significant past medical history who we saw initially in consult 09/29/22 at [facility] where he pr esented with progressive abdominal pain. CT AP noted suspicious 3.6 x 2.6 cm hypovascular mass at the tail of the pancreas, 1.2 cm medial lesion at the right liver lobe concerning for metastatic disease, and extensive omental reticulations, intrapelvic fat, mild ascites, and splenomegaly at 15.7 cm. He was started on oral morphine with significant pain relief, sched for bx. Liver lesion was too small to biopsy so, pt was referred to Dr. Silas Craft for EGD with EUS and biopsy of the pancreatic tail lesion, done 10/23/2022, path consistent with adenocarcinoma. Staging PET/CT on 10/15/2022 noted FDG avid pancreatic tail mass in addition to at least 2 FDG avid foci within the right lobe of the liver along with extensive omental metastases along the anterior peritoneal wall and ascites consistent for metastatic disease. Portion of radiotracer within the second portion of duodenum was potentially concerning for an additional focus of metastatic disease. Of note, CA 19-9 on initial co nsultation was 321.9 with a CEA of 6. He received his first cycle of gem/abraxane 10/29, he also received parenteral iron. He presented to the ER with concerns of fever. He reports a cough, feeling cold and shaky after urination 2 days, his abdomen has become progressively more distended, he is experiencing early satiety. He is having to take MiraLAX for bowel movements, he did have one overnight. He was scheduled to have a paracentesis next week, but that is being planned while he is inpatient. Patient feels okay when seen today. No significant hematological toxicities post f cycle 1, day 1 of treatment. Review of Systems 10 point review of systems is negative except as stated in HPI Past Medical History Past Medical History: Cancer, GERD/Reflux, Osteoarthritis (OA), Prostate Disorder Additional Past Medical History / Comment(s): elevated PSA, PAIN IN BILATERAL KNEES. 10/31-pancreatic cancer History of Any Multi-Drug Resistant Organisms: None Reported Past Surgical History: Appendectomy, Hernia Repair Additional Past Surgical History / Comment(s): 04/07/15 Total L knee arthroplasty. Other SX HX: HERNIA: BILATERAL ING & UMBILICAL. HAD RUPTURED APPENDIX:IN & OUT OF HOSPITAL WITH SEVERE ABD INFECTION AND THEN REMOVAL OF APPENDIX @ AGE 14 YR. Past Anesthesia/Blood Transfusion Reactions: No Reported Reaction Past Psychological History: No Psychological Hx Reported Additional Psychological History / Comment(s): Pt resides with his spouse. He is independent. He drives. He already has a walker, shower chair to use post- op. Smoking Status: Never smoker Past Alcohol Use History: Occasional Additional Past Alcohol Use History / Comment(s): Patient states he has only an "occasional" drink. Past Drug Use History: None Reported - Past Family History Mother Family Medical History: Cancer, CVA/TIA Additional Family Medical History / Comment(s): Mother has had TIA's. breast cancer hx Brother(s) Family Medical History: Diabetes Mellitus, Hypertension Father Family Medical History: Hypertension Additional Family Medical History / Comment(s): Father is 84 yrs old Sister(s) Family Medical History: No Reported History Daughter(s) Family Medical History: No Reported History Son(s) Family Medical History: No Reported History Medications and Allergies Home Medications Medication Instructions Recorded Confirmed Type Finasteride [Proscar] 5 mg PO HS 03/26/15 10/31/22 History Morphine Sulfate [Morphine Sulfate 30 mg PO BID 10/28/22 10/31/22 History ER] Pantoprazole [Protonix] 40 mg PO DAILY 10/28/22 10/31/22 History Morphine Sulfate 15 mg PO Q4H PRN 10/31/22 10/31/22 History Ondansetron Odt [Zofran Odt] 8 mg PO TID 10/31/22 10/31/22 History polyethylene glycoL 3350 [Miralax] 17 gm PO DAILY PRN 10/31/22 10/31/22 History Allergies Allergy/AdvReac Type Severity Reaction Status Date / Time diphenhydramine HCl AdvReac Hallucinati Verified 10/31/22 15:21 [From Benadryl] ons Physical Exam Vitals: Vital Signs Temp Pulse Pulse Resp BP BP Pulse Ox 11/01/22 07:30 98.9 F 85 18 111/74 93 L 11/01/22 02:00 98.5 F 105 H 16 121/75 91 L 10/31/22 20:00 98.0 F 86 16 119/78 91 L 10/31/22 15:26 97.6 F 80 16 120/76 94 L 10/31/22 13:39 79 20 103/69 10/31/22 12:00 82 18 116/72 10/31/22 10:37 99.1 F 10/31/22 09:20 100.1 F H 104 H 22 111/76 97 Intake and Output 10/31/22 11/01/22 11/01/22 22:59 06:59 14:59 Intake Total 100 590 Balance 100 590 Intake: Intake, IV Titration 100 Amount Cefepime 2 gm In Sodium 100 Chloride 0.9% 100 ml @ 25 mls/hr IVPB Q8HR [facility] Rx# :[id number] Oral 590 Other: # Voids 2 Weight 99.79 kg - Constitutional General appearance: average body habitus, cooperative, no acute distress - EENT Eyes: anicteric sclerae, EOMI ENT: hearing grossly normal - Neck Neck: no lymphadenopathy - Respiratory Respiratory: bilateral: CTA (Slightly diminished bases) - Cardiovascular Rhythm: regular Heart sounds: normal: S1, S2 Abnormal Heart Sounds: no systolic murmur, no diastolic murmur, no rub, no S3 Gallop, no S4 Gallop, no click, no other leg Peripheral Edema: bilateral: Trace - Gastrointestinal General gastrointestinal: no absent bowel sounds, no decreased bowel sounds, distended, no hepatomegaly, no hyperactive bowel sounds, normal bowel sounds, no organomegaly, no rigid, no scaphoid, soft, no splenomegaly, tenderness, no umbilical hernia, no ventral hernia - Integumentary Integumentary: normal - Neurologic Neurologic: CNII-XII intact - Musculoskeletal Musculoskeletal: strength equal bilaterally - Psychiatric Psychiatric: A&O x's 3, appropriate affect, intact judgment & insight Results CBC & Chem 7: 11/01/22 04:41 11/01/22 04:41 Labs: Abnormal Lab Results - Last 24 Hours (Table) 10/31/22 10/31/22 10/31/22 Range/Units 09:48 09:48 09:48 WBC 13.8 H (3.8-10.6) k/uL Neutrophils # 13.0 H (1.3-7.7) k/uL Lymphocytes # 0.4 L (1.0-4.8) k/uL Sodium 135 L (137-145) mmol/L Glucose 126 H (74-99) mg/dL Calcium 8.1 L (8.4-10.2) mg/dL Total Protein 5.9 L (6.3-8.2) g/dL Albumin 3.4 L (3.5-5.0) g/dL Urine Protein 1+ H (Negative) Urine Ketones Trace H (Negative) Amorphous Sediment Rare H (None) /hpf Urine Bacteria Rare H (None) /hpf Urine Mucus Occasional H (None) /hpf Chest x-ray: report reviewed Assessment and Plan (1) Pancreatic adenocarcinoma Current Visit: Yes Status: Acute Code(s): C25.9 - MALIGNANT NEOPLASM OF PANCREAS, UNSPECIFIED SNOMED Code(s): 759606056 (2) Ascites Current Visit: Yes Status: Acute Code(s): R18.8 - OTHER ASCITES SNOMED Code(s): 355953496 (3) Fever Current Visit: Yes Status: Acute Code(s): R50.9 - FEVER, UNSPECIFIED SNOMED Code(s): 614628969 Plan: Fever/chills -Patient is on empiric antibiotics -Patient is going to have paracentesis for painfully distended abdomen. Have requested cultures and cell count on the same -No fever since admit -Pancultures pending -ID consulted Pancreatic adenocarcinoma, Stage IV -New diagnosis. -Patient is status post cycle 1 day 1 of Gemzar and Abraxane. Hematologically he tolerated well. -Not absolutely clear if fevers are from chemotherapy. Patient is not neutropenic and all other counts are stable. Maybe r/t destruction of tumor by chemo? Will see how patient does, pending pancultures results and ID consult attests: I have seen and examined patient, performed H&P, developed impression and plan of care. Discussed with dictator. Agree with documentation, dictated as a scribe.
[2022-11-01] MEDS: PIPERACILLIN-TAZOBACTAM 3.375 GM in SODIUM CHLORIDE 0.9% 100 ML IVPB SCH (18:16)
[2022-11-01 20:18] LABS: Glucose,Whole Blood 131 mg/dL (70-110)
[2022-11-01] MEDS ORDERED: ONDANSETRON 4 MG/2 ML VIAL IVP ONE (20:44)
[2022-11-01] MEDS ORDERED: FINASTERIDE 5 MG TAB PO SCH (21:00)
[2022-11-01] MEDS: IOPAMIDOL CONTRAST (ORAL USE) VIAL PO PRN ×2 (22:15→23:15)
[2022-11-01] MEDS: MORPHINE SULFATE ER 30 MG TABLET PO SCH (22:17)
--- NOTE | 2022-11-01 22:32 | P.CONS ---
History of Present Illness - Reason for Consult Consult date: 11/01/22 Fever Requesting physician: Pierre E Sheet - Chief Complaint Abdominal pain x few days - History of Present Illness Patient is a 62-year-old male with a past medical history significant for pancreatic cancer reflex and prostate disorder presenting to the hospital with abdominal pain that the pain has been getting worse for the last few days patient describes the pain to be mostly lower abdominal area describing it to be sharp in nature almost 10 of 10 in severity with associated abdominal distention some nausea and decreased oral intake denies any diarrhea or constipation and the patient did have fever and chills at home with the symptoms the patient pre sented to the hospital on presentation to the hospital patient did have a fever of 100.1 degrees following right patient was tachycardic but not hypotensive or hypoxic did have a white count 13 point 8 repeat is up to 15.36 with a left shift kidney function has been normal, liver enzymes, are normal urine has been negative influenza RSV and COVID testing was negative patient did have a chest x-ray small bilateral effusion with the left greater than the right patient did have a ultrasound-guided paracentesis with 800 cc of blood drained zia fluid drained fluid has been sent for analysis patient has been started on cefepime infectious disease was consulted for further management of antibiotic therapy Review of Systems Positive point and negatives has been mentioned in the HPI, complete review of systems was performed and all other systems are negative Past Medical History Past Medical History: Cancer, GERD/Reflux, Osteoarthritis (OA), Prostate Disorder Additional Past Medical History / Comment(s): elevated PSA, PAIN IN BILATERAL KNEES. 10/31-pancreatic cancer History of Any Multi-Drug Resistant Organisms: None Reported Past Surgical History: Appendectomy, Hernia Repair Additional Past Surgical History / Comment(s): 04/07/15 Total L knee arthroplasty. Other SX HX: HERNIA: BILATERAL ING & UMBILICAL. HAD RUPTURED APPENDIX:IN & OUT OF HOSPITAL WITH SEVERE ABD INFECTION AND THEN REMOVAL OF APPENDIX @ AGE 14 YR. Past Anesthesia/Blood Transfusion Reactions: No Reported Reaction Past Psychological History: No Psychological Hx Reported Additional Psychological History / Comment(s): Pt resides with his spouse. He is independent. He drives. He already has a walker, shower chair to use post- op. Smoking Status: Never smoker Past Alcohol Use History: Occasional Additional Past Alcohol Use History / Comment(s): Patient states he has only an "occasional" drink. Past Drug Use History: None Reported - Past Family History Mother Family Medical History: Cancer, CVA/TIA Additional Family Medical History / Comment(s): Mother has had TIA's. breast cancer hx Brother(s) Family Medical History: Diabetes Mellitus, Hypertension Father Family Medical History: Hypertension Additional Family Medical History / Comment(s): Father is 84 yrs old Sister(s) Family Medical History: No Reported History Daughter(s) Family Medical History: No Reported History Son(s) Family Medical History: No Reported History Medications and Allergies Home Medications Medication Instructions Recorded Confirmed Type Finasteride [Proscar] 5 mg PO HS 03/26/15 11/04/22 History Morphine Sulfate [Morphine Sulfate 30 mg PO BID 10/28/22 11/04/22 History ER] Pantoprazole [Protonix] 40 mg PO DAILY 10/28/22 11/04/22 History Morphine Sulfate 15 mg PO Q4H PRN 10/31/22 11/04/22 History Ondansetron Odt [Zofran ODT] 8 mg PO TID 10/31/22 11/04/22 History polyethylene glycoL 3350 [Miralax] 17 gm PO DAILY PRN 10/31/22 11/04/22 History Amoxic-Pot Clav 875-125Mg 1 tab PO Q12HR 3 Days #6 tab 11/02/22 11/04/22 Rx [Augmentin 875-125] Ascorbic Acid [Vitamin C] 500 mg PO DAILY 11/04/22 11/04/22 History Cholecalciferol (Vitamin D3) 1,250 mcg PO DAILY 11/04/22 11/04/22 History [Vitamin D3] Cyanocobalamin (Vitamin B-12) 1,000 mcg PO DAILY 11/04/22 11/04/22 History [Vitamin B-12] Elderberry Fruit [Elderberry] 1 tab PO DAILY 11/04/22 11/04/22 History Magnesium Hydroxide [Milk of 30 ml PO DAILY PRN 11/04/22 11/04/22 History Magnesia] Multivit-Min/FA/Lycopen/Lutein 1 tab PO DAILY 11/04/22 11/04/22 History [Centrum Silver Men Tablet] Allergies Allergy/AdvReac Type Severity Reaction Status Date / Time diphenhydramine HCl AdvReac Hallucinati Verified 11/04/22 15:02 [From Benadryl] ons Physical Exam Vitals: Vital Signs Temp Pulse Pulse Resp BP BP Pulse Ox 11/01/22 07:30 98.9 F 85 18 111/74 93 L 11/01/22 02:00 98.5 F 105 H 16 121/75 91 L 10/31/22 20:00 98.0 F 86 16 119/78 91 L 10/31/22 15:26 97.6 F 80 16 120/76 94 L 10/31/22 13:39 79 20 103/69 10/31/22 12:00 82 18 116/72 Intake and Output 10/31/22 11/01/22 11/01/22 22:59 06:59 14:59 Intake Total 100 590 Balance 100 590 Intake: Intake, IV Titration 100 Amount Cefepime 2 gm In Sodium 100 Chloride 0.9% 100 ml @ 25 mls/hr IVPB Q8HR [facility] Rx# :[id number] Oral 590 Other: # Voids 2 Weight 99.79 kg GENERAL DESCRIPTION: Middle-aged male lying in bed, no distress. No tachypnea or accessory muscle of respiration use. HEENT: Shows Pallor , no scleral icterus. Oral mucous membrane is dry. No phar yngeal erythema or thrush NECK: Trachea central, no thyromegaly. LUNGS: Unlabored breathing. Clear to auscultation anteriorly. No wheeze or crackle. HEART: S1, S2, regular rate and rhythm. No loud murmur ABDOMEN: Soft, mild abdominal distention and tenderness EXTREMITIES: No edema of feet. SKIN: No rash, no masses palpable. NEUROLOGICAL: The patient is awake, alert, oriented x3, mood and affect normal. Results CBC & Chem 7: 11/02/22 06:35 11/02/22 06:35 Labs: Abnormal Lab Results - Last 24 Hours (Table) 10/31/22 11/01/22 11/01/22 Range/Units 09:48 04:41 04:41 WBC 15.36 H (4.50-10.00) X 10*3/uL Hct 39.3 L (39.6-50.0) % Neutrophils # 14.75 H (1.80-7.70) X 10*3/uL Lymphocytes # 0.44 L (0.90-5.00) X 10*3/uL Monocytes # 0.05 L (0.20-1.00) X 10*3/uL Eosinophils # 0 L (0.04-0.35) X 10*3/uL Glucose 140 H (70-110) mg/dL Calcium 8.2 L (8.7-10.3) mg/dL AST 45 H (14-35) U/L Total Protein 5.1 L (6.2-8.2) d/dL Albumin 3.2 L (3.8-4.9) d/dL Amylase 4 L (23-121) U/L Urine Protein 1+ H (Negative) Urine Ketones Trace H (Negative) Amorphous Sediment Rare H (None) /hpf Urine Bacteria Rare H (None) /hpf Urine Mucus Occasional H (None) /hpf Assessment and Plan (1) Ascites Status: Acute Code(s): R18.8 - OTHER ASCITES SNOMED Code(s): 080657959 (2) Fever Status: Acute Priority: High Code(s): R50.9 - FEVER, UNSPECIFIED SNOMED Code(s): 491702906 (3) Leukocytosis Status: Acute Code(s): D72.829 - ELEVATED WHITE BLOOD CELL COUNT, UNSPECIFIED SNOMED Code(s): 185949228 Plan: 1patient presented hospital with sepsis in this patient with a fever tachycardia elevated white count patient did have predominantly abdominal symptoms patient does have a history of pancreatic cancer and was noticed to have ascites s/p paracentesis source likely abdominal and will need to call for the enteric gram-negative both aerobes and anaerobes 2-we will obtain a CT abdominal pelvis for better definition of underlying intra-abdominal pathology 3-discontinue cefepime 4-start the patient on Zosyn 3.375 g every 8 hours We will follow on clinical condition and cultures to further adjust medication if needed Thank you for this consultation we will follow the patient along with you Dictation was produced using [employer] dictation software. please excuse any grammatical, word or spelling errors. Time with Patient: Greater than 30
[2022-11-02] MEDS: PIPERACILLIN-TAZOBACTAM 3.375 GM in SODIUM CHLORIDE 0.9% 100 ML IVPB SCH ×2 (02:31→09:10)
[2022-11-02] MEDS: HYDROcodone/APAP 7.5-325MG 1 EACH TAB PO PRN (02:48)
[2022-11-02 05:10] LABS: Appearance,BF Slightly Cloudy (Clear)
[2022-11-02] MEDS: MORPHINE SULFATE IR 15 MG TABLET PO PRN ×2 (06:57→16:25)
[2022-11-02 07:43] LABS: Glucose,Whole Blood 107 mg/dL (70-110)
--- NOTE | 2022-11-02 08:10 | CT ---
EXAMINATION TYPE: CT abdomen pelvis w con CT DLP: 1492.9 mGycm, Automated exposure control for dose reduction was used. DATE OF EXAM: 11/02/2022 1:16 AM COMPARISON: PET/CT 10/15/2022, CT abdomen pelvis 08/26/2011 CLINICAL INDICATION:Male, 62 years old with history of abd pain/tenderness; pancreatic cancer TECHNIQUE: Standard CT of the abdomen and pelvis following the administration of 100 cc of Isovue 3 00 IV contrast material and oral contrast. Coronal and sagittal reformats were performed. FINDINGS: LOWER CHEST: Small bilateral pleural effusions with associated atelectasis, left greater than right. Mild prominence of the heart. Trace pericardial occlusion. ABDOMEN LIVER: There are at least 5 hypodense lesions demonstrated within the right hepatic lobe with largest in the medial aspect measuring up to 3.0 cm (series 201, image 27). Additional 7 mm lesion along the posterior margin of the right hepatic lobe (series 201, image 22). These demonstrate FDG avidity on prior PET/CT. GALLBLADDER AND BILE DUCTS: Unremarkable. PANCREAS: No pancreatic ductal dilatation. Redemonstration of pancreatic tail mass measuring 3.9 x 2. 6 cm (series 201, image 33). This demonstrates low attenuation. SPLEEN: Unremarkable. ADRENAL GLANDS: Unremarkable. KIDNEYS AND URETERS: No evidence of hydronephrosis. The kidneys enhance symmetrically. Bilateral sue l cysts with largest in the superior pole the right kidney measuring up to 2.2 cm. Punctate 1 mm and nonobstructive right renal calculus. PELVIS BLADDER: Under distended, limiting evaluation. REPRODUCTIVE: Prostate is enlarged in size measuring 5.6 cm in transverse dimension. This indents upo n the urinary bladder base. ABDOMEN & PELVIS STOMACH AND BOWEL: Stomach and duodenum are unremarkable. Enteric contrast reaches the ileocecal junc tion. There is some wall thickening identified involving the cecum. Distal colonic diverticulosis wit hout evidence for acute diverticulitis. No evidence of bowel obstruction. PERITONEUM: No evidence of pneumoperitoneum. Small volume ascites noted throughout the abdomen and pe lvis. Extensive anterior peritoneal omental caking redemonstrated. This is most prominent within the right mid abdomen. Additional omental caking/metastasis identified lateral to the second portion of t he duodenum which demonstrate FDG avidity. VASCULATURE: Mild atherosclerotic calcifications are present throughout the abdominal aorta and its b ranches. No evidence of aortic aneurysm. MUSCULOSKELETAL: No acute osseous abnormalities. Mild disc degeneration changes are present throughou t the thoracolumbar spine. No aggressive osseous lesion. LYMPH NODES: No gross evidence for lymphadenopathy. SOFT TISSUE/ABDOMINAL WALL: Mild diffuse anasarca. IMPRESSION: 1. Redemonstration of pancreatic tail mass which was FDG avid on prior PET/CT and corresponds to know n pancreatic cancer. Few FDG avid hypodense lesions in the liver consistent with metastasis. Addition al extensive omental caking consistent with metastasis with region of omental caking/metastatic depos it lateral to the duodenal corresponding to FDG avid focus. 2. Small volume ascites, mild anasarca, small bilateral pleural effusions, and trace pericardial effu cruzito. 3. Colonic diverticulosis without evidence for acute diverticulitis.
[2022-11-02] MEDS: INSULIN ASPART (NovoLOG) 100 UNIT/ML VIAL SQ SCH ×3 (09:03→17:45)
[2022-11-02] MEDS: PANTOPRAZOLE 40 MG/10 ML VIAL IV SCH (09:09)
[2022-11-02] MEDS: MORPHINE SULFATE ER 30 MG TABLET PO SCH (09:09)
[2022-11-02 11:12] LABS: HGB 12.3 d/dL (13.0-17.0); MCH 28.1 pg (27.0-32.0); MCHC 33.2 d/dL (32.0-37.0); MCV 84.5 FL (80.0-97.0); NRBC Per 100 WBC 0 X 10*3/uL (0.00-0.01); Platelet Count 176 X 10*3/uL (140-440); RBC 4.38 X 10*6/uL (4.40-5.60); RDW 12.6 % (11.5-14.5); WBC 12.13 X 10*3/uL (4.50-10.00)
[2022-11-02 11:17] LABS: ALT 37 U/L (10-49); AST 38 U/L (14-35); Albumin 2.7 d/dL (3.8-4.9); Albumin/Globulin Ratio 1.59 Ratio (1.60-3.17); Alkaline Phosphatase 70 U/L (41-126); BUN/Creat Ratio 17.29 Ratio (12.00-20.00); Blood Urea Nitrogen 12.1 mg/dL (9.0-27.0); Calcium 7.9 mg/dL (8.7-10.3); Carbon Dioxide 25.5 mmol/L (21.6-31.8); Chloride 105 mmol/L (96-109); Globulin 1.7 d/dL (1.6-3.3); Glucose 116 mg/dL (70-110); Magnesium 2.2 mg/dL (1.5-2.4); Potassium 4.1 mmol/L (3.5-5.5); Sodium 139 mmol/L (135-145); Total Bilirubin 0.5 mg/dL (0.3-1.2); Total Protein 4.4 d/dL (6.2-8.2)
--- NOTE | 2022-11-02 11:53 | CA ---
Transthoracic Echo Report Name: Keith Espinoza Age: 62 Gender: M : 1960 Exam Date: 11/02/2022 11:03 Exam Location: [facility] Ht (in): 74 Wt (lb): 220 Ordering Physician: Maria Elena Pringle Attending/Referring Phys: Pino PETERSON [employer] Isa Parry, OZZY Procedure CPT: Indications: trace pericardial effusion noted on CT Cardiac Hx: Technical Quality: Good Contrast 1: Total Dose (mL): Contrast 2: Total Dose (mL): MEASUREMENTS (Male / Female) Normal Values 2D ECHO LV Diastolic Diameter PLAX 5.0 cm 4.2 - 5.9 / 3.9 - 5.3 cm LV Systolic Diameter PLAX 3.2 cm IVS Diastolic Thickness 1.4 cm 0.6 - 1.0 / 0.6 - 0.9 cm LVPW Diastolic Thickness 1.3 cm 0.6 - 1.0 / 0.6 - 0.9 cm LV Relative Wall Thickness 0.5 RV Internal Dim ED PLAX 2.8 cm LA Systolic Diameter LX 3.8 cm 3.0 - 4.0 / 2.7 - 3.8 cm LV Diastolic Volume MOD 4C 102.6 cm??? LV Systolic Volume MOD 4C 52.1 cm??? LV Ejection Fraction MOD 4C 49.2 % LV Cardiac Index MOD 4C 1801.1 cm???/min???m??? LV Diastolic Length 4C 9.8 cm LV Systolic Length 4C 7.9 cm LV Diastolic Volume MOD 2C 82.6 cm??? LV Systolic Volume MOD 2C 41.8 cm??? LV Ejection Fraction MOD 2C 49.4 % LV Cardiac Index MOD 2C 1455.4 cm???/min???m??? LV Diastolic Length 2C 9.0 cm LV Systolic Length 2C 7.1 cm LA Volume 48.2 cm??? 18 - 58 / 22 - 52 cm??? M-MODE Aortic Root Diameter MM 3.9 cm MV E Point Septal Separation 1.2 cm AV Cusp Separation MM 2.3 cm DOPPLER AV Peak Velocity 155.5 cm/s AV Peak Gradient 9.7 mmHg MV Area PHT 3.7 cm??? Mitral E Point Velocity 82.0 cm/s Mitral A Point Velocity 77.2 cm/s Mitral E to A Ratio 1.1 MV Deceleration Time 202.6 ms MV E' Velocity 7.6 cm/s Mitral E to MV E' Ratio 10.7 TR Peak Velocity 216.1 cm/s TR Peak Gradient 18.7 mmHg Right Ventricular Systolic Press 23.4 mmHg FINDINGS Left Ventricle Left ventricular ejection fraction is estimated at 55-60 %. Left ventricular cavity size normal. Mildly increased left ventricular wall thickness. Normal left ventricular diastolic filling pattern. Right Ventricle Normal right ventricular size. Right ventricular systolic pressure within normal limits. Right Atrium Normal right atrial size. Left Atrium Normal left atrial size. Mitral Valve Structurally normal mitral valve. Trace mitral regurgitation. Aortic Valve Trileaflet aortic valve. No aortic valve stenosis or regurgitation. Tricuspid Valve Structurally normal tricuspid valve. Trace tricuspid regurgitation. Pulmonic Valve Structurally normal pulmonic valve. No pulmonic regurgitation. Pericardium Normal pericardium. No pericardial effusion. Aorta Normal size aortic root and proximal ascending aorta. CONCLUSIONS 1. Normal left ventricle size and systolic function 2. Trace mitral and tricuspid regurgitation 3. No pericardial effusion Previewed by: Dr. Roel Preston MD (Electronically Signed) Final Date: 02 November 2022 11:52
[2022-11-02 11:57] LABS: Basophils # (A) 0.02 X 10*3/uL (0.00-0.10); Basophils % (A) 0.2 %; Eosinophils # (A) 0.14 X 10*3/uL (0.04-0.35); Eosinophils % (A) 1.2 %; Lymphocytes # (A) 0.61 X 10*3/uL (0.90-5.00); Monocytes # (A) 0.06 X 10*3/uL (0.20-1.00); Monocytes % (A) 0.5 %; Neutrophils # (A) 11.27 X 10*3/uL (1.80-7.70); Neutrophils % (A) 92.9 %; RBC Morphology Normal (Normal)
[2022-11-02 12:59] LABS: Glucose,Whole Blood 116 mg/dL (70-110)
[2022-11-02 13:26] VITALS: BP 108/72; PULSE 78; RESP 18; TEMP 97.8
--- NOTE | 2022-11-02 13:55 | P.PN ---
Subjective Progress Note Date: 11/02/22 Principal diagnosis: Abd pain, distension, metastatic pancreatic adenocarcinoma In follow-up today patient is reporting some improvements in abdominal distention, still short of breath with exertion, he cannot lay flat, general aching of the abd, appetite is fair to poor, he cannot eat a lot. He is noticing some tingling on his right side/flank, his noticed it is red in the area. Swelling in legs in mild, he is able to ambulate. Objective - Vital Signs Vital signs: Vital Signs Temp 97.8 F 11/02/22 12:30 Pulse 78 11/02/22 12:30 Resp 18 11/02/22 12:30 BP 108/72 11/02/22 12:30 Pulse Ox 96 11/02/22 12:30 FiO2 Intake & Output 11/01/22 11/02/22 11/02/22 18:59 06:59 18:59 Weight 99.79 kg Other: Voiding Method Toilet Toilet Urinal Urinal # Voids 0 2 - Constitutional General appearance: Present: average body habitus, cooperative, no acute distress - EENT Eyes: Present: anicteric sclerae, EOMI ENT: Present: hearing grossly normal - Respiratory Respiratory: bilateral: CTA, diminished (bases) - Cardiovascular Details: Skin warm and dry to the touch - Peripheral edema leg Peripheral Edema: bilateral: Trace - Gastrointestinal Gastrointestinal Comment(s): Distant bowel sounds General gastrointestinal: Present: distended, soft - Integumentary Integumentary Comment(s): Right flank a strip of redness is noted, warm but, not hot, to the touch, patient reports "picky" sensation when being touched in the area - Neurologic Neurologic: Present: CNII-XII intact - Musculoskeletal Musculoskeletal: Present: strength equal bilaterally - Psychiatric Psychiatric: Present: A&O x's 3, appropriate affect, intact judgment & insight - Labs CBC & Chem 7: 11/02/22 06:35 11/02/22 06:35 Labs: Abnormal Lab Results - Last 24 Hours (Table) 11/01/22 11/01/22 11/01/22 Range/Units 04:41 12:25 20:16 WBC (4.50-10.00) X 10*3/uL RBC (4.40-5.60) X 10*6/uL Hgb (13.0-17.0) d/dL Hct (39.6-50.0) % Neutrophils # (1.80-7.70) X 10*3/uL Lymphocytes # (0.90-5.00) X 10*3/uL Monocytes # (0.20-1.00) X 10*3/uL Glucose (70-110) mg/dL POC Glucose (mg/dL) 131 H (70-110) mg/dL Hemoglobin A1c (<=6.0) % Calcium (8.7-10.3) mg/dL AST (14-35) U/L Total Protein (6.2-8.2) d/dL Albumin (3.8-4.9) d/dL Albumin/Globulin Ratio (1.60-3.17) Ratio Procalcitonin 0.48 H (0.02-0.09) ng/mL Fluid Appearance Slightly Cloudy A (Clear) 11/02/22 11/02/22 11/02/22 Range/Units 06:35 06:35 06:35 WBC 12.13 H (4.50-10.00) X 10*3/uL RBC 4.38 L (4.40-5.60) X 10*6/uL Hgb 12.3 L (13.0-17.0) d/dL Hct 37.0 L (39.6-50.0) % Neutrophils # 11.27 H (1.80-7.70) X 10*3/uL Lymphocytes # 0.61 L (0.90-5.00) X 10*3/uL Monocytes # 0.06 L (0.20-1.00) X 10*3/uL Glucose 116 H (70-110) mg/dL POC Glucose (mg/dL) (70-110) mg/dL Hemoglobin A1c 6.2 H (<=6.0) % Calcium 7.9 L (8.7-10.3) mg/dL AST 38 H (14-35) U/L Total Protein 4.4 L (6.2-8.2) d/dL Albumin 2.7 L (3.8-4.9) d/dL Albumin/Globulin Ratio 1.59 L (1.60-3.17) Ratio Procalcitonin (0.02-0.09) ng/mL Fluid Appearance (Clear) 11/02/22 Range/Units 12:36 WBC (4.50-10.00) X 10*3/uL RBC (4.40-5.60) X 10*6/uL Hgb (13.0-17.0) d/dL Hct (39.6-50.0) % Neutrophils # (1.80-7.70) X 10*3/uL Lymphocytes # (0.90-5.00) X 10*3/uL Monocytes # (0.20-1.00) X 10*3/uL Glucose (70-110) mg/dL POC Glucose (mg/dL) 116 H (70-110) mg/dL Hemoglobin A1c (<=6.0) % Calcium (8.7-10.3) mg/dL AST (14-35) U/L Total Protein (6.2-8.2) d/dL Albumin (3.8-4.9) d/dL Albumin/Globulin Ratio (1.60-3.17) Ratio Procalcitonin (0.02-0.09) ng/mL Fluid Appearance (Clear) Microbiology - Last 24 Hours (Table) 10/31/22 10:00 Blood Culture - Preliminary Blood 10/31/22 09:45 Blood Culture - Preliminary Blood - Imaging and Cardiology CT scan - abdomen: report reviewed CT scan - pelvis: report reviewed Echo report reviewed. LVEF documented 55-60% Assessment and Plan (1) Fever Current Visit: Yes Status: Acute Priority: High Code(s): R50.9 - FEVER, UNSPECIFIED SNOMED Code(s): 010925934 (2) Pancreatic adenocarcinoma Current Visit: Yes Status: Acute Code(s): C25.9 - MALIGNANT NEOPLASM OF PANCREAS, UNSPECIFIED SNOMED Code(s): 414189691 (3) Ascites Current Visit: Yes Status: Acute Code(s): R18.8 - OTHER ASCITES SNOMED Code(s): 080508008 Plan: Fever/chills -Continues on empiric antibiotics -Status post 6800 cc paracentesis, culture and cell count pending -No fevers since admit -Pancultures Pending, blood cultures negative at 24 hours -ID Has seen the patient Pancreatic adenocarcinoma, Stage IV -New diagnosis. -Patient is status post cycle 1 day 1 of Gemzar and Abraxane. Hematologically he tolerated well. -Not absolutely clear if fevers are from chemotherapy. Patient is not neutropenic and all other counts are stable. Maybe r/t destruction of tumor by chemo? Patient stable today. No fevers. WBC is trending down. -CT of the abdomen and pelvis compared to PET/CT from August. Reports redemonstration of the pancreatic tail mass, hypodense lesions in the liver, extensive omental caking, all corresponding to FDG avid findings on PET/CT. Small volume ascites, mild anasarca, small bilateral pleural effusions and a trace pericardial effusion. Diverticulosis without acute diverticulitis. He is status post cycle 1 day 1 of treatment. No discussion of new disease or significant changes at this time. Nothing acute reported. -Echo report reviewed. LVEF 55-60%. Ascites -6800 cc of fluid removed from the abdomen -Patient's abdomen is still distended. He is unable to lay flat without significant shortness of breath. He requires the head of his bed to be at least 30 an order for him to be able to breathe comfortably secondary to malignant ascites. Hospital bed has been requested. -Rt flank redness noted after paracentesis. From tape on drape or skin pred? Monitor closely for persistence, progressive symptoms. attests: I have seen and examined patient, performed H&P, developed impression and plan of care. Discussed with dictator. Agree with documentation, dictated as a scribe.
--- NOTE | 2022-11-02 14:14 | P.PN ---
Subjective Progress Note Date: 11/02/22 Principal diagnosis: Leukocytosis and fever Patient is a 62-year-old male with a past medical history significant for pancreatic cancer reflex and prostate disorder presenting to the hospital with abdominal pain , patient did have evidence of ascites status post ultras ound-guided paracentesis CT abdominal pelvis did not show any evidence of colitis or an abscess. on today's evaluation that is 11/02/2022, the patient is afebrile patient is still complaining of lower abdominal pain although controlled with pain medication patient denies any chest pain or shortness of breath or cough some nausea but no vomiting and no diarrhea , Objective - Vital Signs Vital signs: Vital Signs Temp 97.7 F 11/02/22 07:31 Pulse 75 11/02/22 07:31 Resp 14 11/02/22 07:31 BP 102/65 11/02/22 07:31 Pulse Ox 95 11/02/22 07:31 FiO2 Intake & Output 11/01/22 11/02/22 11/02/22 18:59 06:59 18:59 Weight 99.79 kg Other: Voiding Method Toilet Toilet Urinal Urinal # Voids 0 2 - Exam GENERAL DESCRIPTION: A middle-age male up in the chair in no distress RESPIRATORY SYSTEM: Unlabored breathing , decreased breath sounds at bases HEART: S1 S2 regular rate and rhythm , ABDOMEN: Soft , mild tenderness EXTREMITIES: No edema feet - Labs CBC & Chem 7: 11/02/22 06:35 11/02/22 06:35 Labs: Abnormal Lab Results - Last 24 Hours (Table) 11/01/22 11/01/22 11/01/22 Range/Units 04:41 12:25 20:16 WBC (4.50-10.00) X 10*3/uL RBC (4.40-5.60) X 10*6/uL Hgb (13.0-17.0) d/dL Hct (39.6-50.0) % Neutrophils # (1.80-7.70) X 10*3/uL Lymphocytes # (0.90-5.00) X 10*3/uL Monocytes # (0.20-1.00) X 10*3/uL Glucose (70-110) mg/dL POC Glucose (mg/dL) 131 H (70-110) mg/dL Hemoglobin A1c (<=6.0) % Calcium (8.7-10.3) mg/dL AST (14-35) U/L Total Protein (6.2-8.2) d/dL Albumin (3.8-4.9) d/dL Albumin/Globulin Ratio (1.60-3.17) Ratio Procalcitonin 0.48 H (0.02-0.09) ng/mL Fluid Appearance Slightly Cloudy A (Clear) 11/02/22 11/02/22 11/02/22 Range/Units 06:35 06:35 06:35 WBC 12.13 H (4.50-10.00) X 10*3/uL RBC 4.38 L (4.40-5.60) X 10*6/uL Hgb 12.3 L (13.0-17.0) d/dL Hct 37.0 L (39.6-50.0) % Neutrophils # 11.27 H (1.80-7.70) X 10*3/uL Lymphocytes # 0.61 L (0.90-5.00) X 10*3/uL Monocytes # 0.06 L (0.20-1.00) X 10*3/uL Glucose 116 H (70-110) mg/dL POC Glucose (mg/dL) (70-110) mg/dL Hemoglobin A1c 6.2 H (<=6.0) % Calcium 7.9 L (8.7-10.3) mg/dL AST 38 H (14-35) U/L Total Protein 4.4 L (6.2-8.2) d/dL Albumin 2.7 L (3.8-4.9) d/dL Albumin/Globulin Ratio 1.59 L (1.60-3.17) Ratio Procalcitonin (0.02-0.09) ng/mL Fluid Appearance (Clear) Microbiology - Last 24 Hours (Table) 10/31/22 10:00 Blood Culture - Preliminary Blood 10/31/22 09:45 Blood Culture - Preliminary Blood Assessment and Plan (1) Leukocytosis Current Visit: Yes Status: Acute Code(s): D72.829 - ELEVATED WHITE BLOOD CELL COUNT, UNSPECIFIED SNOMED Code(s): 611045346 (2) Fever Current Visit: Yes Status: Acute Priority: High Code(s): R50.9 - FEVER, UNSPECIFIED SNOMED Code(s): 041252842 Plan: 1patient presented hospital with sepsis in this patient with a fever tachycardia elevated white count patient did have predominantly abdominal symptoms patient does have a history of pancreatic cancer and was noticed to have ascites s/p paracentesis source likely abdominal and will need to call for the enteric gram-negative both aerobes and anaerobes 2- CT abdominal pelvis did not show any evidence of colitis or an abscess 3Patient to continue Zosyn 3.375 g every 8 hours while waiting for the cultures to finalize Dictation was produced using [employer] dictation software. please excuse any gramma tical, word or spelling errors. Time with Patient: Less than 30
[2022-11-02 17:29] LABS: Glucose,Whole Blood 140 mg/dL (70-110)
--- NOTE | 2022-11-03 22:23 | P.DS ---
Providers Date of admission: 10/31/22 13:33 Attending physician: Pierre Chow MD Consults: 10/31/22 13:33 Consult Physician Routine Consulting Provider: Kaz Reyes Consult Reason/Comments: Oncological care Do you want consulting provider notified?: Already Contacted 11/01/22 07:33 Consult Physician Urgent Consulting Provider: Mikayla Maciel Consult Reason/Comments: fever Do you want consulting provider notified?: Yes Primary care physician: Lee Holden Hospital Course: Final Diagnosis Fever and sepsis possible spontaneous bacterial peritonitis although ascites fluid culture negative. Leukocytosis Abdominal distention due to abdominal ascities s/p paracentesis with 6.8L off History of pancreatic cancer with metastasis to the omentum Chronic pain due to above maintained on oral Er/Ir morphine Prediabetes A1C 6.2 Discharge Disposition Patient is stable for discharge home. Recommending to follow up with his oncologist Dr. Reyes and also his known GI physician out of [facility]. Patient discharged on short course of oral augmentin to finish antibiotic therapy and recommending to follow up with Dr. Maciel outpatient as well. Hospital Course This is a 62 year old male with history of pancreatic cancer. Presents with abdominal pain sharp in nature and abdominal distention with episode of fever and chills at home. Patient denies any shortness of breath, or cough. No chest pain. No n/v/d noted. Fever on admission 100.1 which has resolved at this time. Patient has history of pancreatic cancer follows with GI Dr. Roach out of [facility]. He was scheduleded for paracentesis on Tuesday which will be done this hospital admission as patient presents with significant abdominal distention. On admission white count elevated at 13.8 with concern for SBP and patient has been started on IV cefepime and infectious disease consultation. Oncology is also consulted. Patient had paracentesis done with 6.8 L of blood/tinged zia urine off. Culture was negative. Blood cultures also negative. Patient had a follow up abdominal pelvis CT done rule out abdoimnal source of infection due to the fever, leukocytosis and elevated procalcitonin level of 0.48. The CT shows redemonstration of pancreatic tail mass which was FDG avid on prior PET/CT and corresponds to known pancreatic cancer. there are few FDG hypodense lesions in the liver consistent with metastasis. Additional extensive omental caking consistent with metastasis with region of omental caking/metastatic deposit lateral to the duodenal corresponding to FDG avid focus. Small volume ascites mild anasarca small bilateral pleural effusions and trace pericardial effusion noted. There is colonic diverticulosis without evidence of acute diverticulitis. Echocardiogram was done f/u for the pericardial effusion which reveals no pericardial effusion with trace MR and TR with normal LV function. White count improved to 12.13. Sodium normalized 139, kidney function stable. Patients symptoms improved no further evidence of fever. Abdominal pain improved. Normal BMs. Patient has normoactive bowel sounds abdomen nontender, lungs are clear, S1 S2 auscultated. Patient is discharged home close follow up with care team. Please see medication reconciliation for a list of current medications. Thank you for allowing us to participate in the care of this patient. The impression and plan of care has been dictated by Maria Elena Pringle, Nurse Practitioner as directed. Dr. Ignacio MD I have performed a history and physical examination and medical decision making of this patient, discussed the same with the dictator, and agree with the dictators assessment and plan as written, documented as a scribe. Based on total visit time, I have performed more than 50% of this visit. Patient Condition at Discharge: Stable Plan - Discharge Summary Discharge Rx Participant: Yes New Discharge Prescriptions: New Amoxic-Pot Clav 875-125Mg [Augmentin 875-125] 1 tab PO Q12HR 3 Days #6 tab Continue Finasteride [Proscar] 5 mg PO HS polyethylene glycoL 3350 [Miralax] 17 gm PO DAILY PRN PRN Reason: Constipation Ondansetron Odt [Zofran ODT] 8 mg PO TID Morphine Sulfate [Morphine Sulfate ER] 30 mg PO BID Pantoprazole [Protonix] 40 mg PO DAILY Morphine Sulfate 15 mg PO Q4H PRN PRN Reason: Pain Discharge Medication List Finasteride [Proscar] 5 mg PO HS 03/26/15 [History] Morphine Sulfate [Morphine Sulfate ER] 30 mg PO BID 10/28/22 [History] Pantoprazole [Protonix] 40 mg PO DAILY 10/28/22 [History] Morphine Sulfate 15 mg PO Q4H PRN 10/31/22 [History] Ondansetron Odt [Zofran ODT] 8 mg PO TID 10/31/22 [History] polyethylene glycoL 3350 [Miralax] 17 gm PO DAILY PRN 10/31/22 [History] Amoxic-Pot Clav 875-125Mg [Augmentin 875-125] 1 tab PO Q12HR 3 Days #6 tab 11/02/22 [Rx] Follow up Appointment(s)/Referral(s): Lee Berrios DO [Primary Care Provider] - 1-2 days (Dr. Berrios will call patient to make a follow up appointment.) Kaz Reyes MD [STAFF PHYSICIAN] - 1 Week (November 05 @ 11:[address] [facility] Nov.11 @ 11:30 Chemo Nov 18 @11:30 appointment with Amy) Mikayla Maciel MD [STAFF PHYSICIAN] - 1 Week (Patient needs to call Dr. Padilla office and make a follow up appointment. Office closed at time of discharge. ) Ambulatory/Diagnostic Orders: Basic Metabolic Panel [LAB.AMB] Location: None Selected Complete Blood Count w/diff [LAB.AMB] Time Frame: 3 Days, Location: None Selected Patient Instructions/Handouts: Amoxicillin/Clavulanate Potassium (By mouth), Fever in Adults (GEN), Ascites (DC) Activity/Diet/Wound Care/Special Instructions: Follow up with your known GI specialist and oncologist Continue 3 more days of antibiotic therapy and f/u with Dr. Maciel on discharge Discharge Disposition: HOME SELF-CARE
== END 2022-11-02 18:06 | disposition home or self-care (01) ==
LOC: EC 09:19 → 5NMEDONC 13:33
PROVIDERS: ADMIT Internal Medicine; ATTEND Internal Medicine
DX: A41.9 Sepsis, unspecified organism (principal); R18.8 Other ascites; C25.9 Malignant neoplasm of pancreas, unspecified; G89.3 Neoplasm related pain (acute) (chronic); C78.6 Secondary malignant neoplasm of retroperitoneum and peritoneum; R73.03 Prediabetes; K21.9 Gastro-esophageal reflux disease without esophagitis; J90 Pleural effusion, not elsewhere classified; N42.9 Disorder of prostate, unspecified; M19.90 Unspecified osteoarthritis, unspecified site; K57.30 Diverticulosis of large intestine without perforation or abscess without bleeding; K76.9 Liver disease, unspecified; Z20.822 Contact with and (suspected) exposure to COVID-19; Z79.891 Long term (current) use of opiate analgesic; Z79.899 Other long term (current) drug therapy; Z88.8 Allergy status to other drugs, medicaments and biological substances; Z96.652 Presence of left artificial knee joint; Z98.890 Other specified postprocedural states; Z83.3 Family history of diabetes mellitus; Z82.49 Family history of ischemic heart disease and other diseases of the circulatory system; Z82.3 Family history of stroke; Z80.3 Family history of malignant neoplasm of breast
CPT/HCPCS: 96376 ×2; 96375; 96374; 99285; 36415 ×2; 93005; 93306; 92610; 80053 ×3; 89050; 82150; 83605; 83690; 83735; 85025 ×3; 85610; 85730; 81001; 87040; 87070; 87205; 87075; 83036; 84145; 87636; 71046 ×2; 49083; 74177; G0378 ×3; S0138; J2543 ×2; J2405; J0692 ×2; J1170 ×2; C9113 ×2; Q9967

== ENCOUNTER 2022-11-18 08:56 | Day surgery (SDC) | payer BC ==
[2022-11-18 09:29] LABS: Mean Platelet Volume 7.4; Platelet Count 217 k/uL (150-450)
[2022-11-18 09:34] LABS: INR 1.1 (<1.2); Prothrombin Time 11.8 sec (9.0-12.0)
[2022-11-18 09:41] LABS: African American GFR (CKD) >90 (>60 ml/min/1.73 sqM); Non-African American GFR(CKD) >90 (>60 ml/min/1.73 sqM)
[2022-11-18 09:42] VITALS: TEMP 98.3
[2022-11-18 11:41] VITALS: BP 117/79; PULSE 81; RESP 18
--- NOTE | 2022-11-18 12:57 | US ---
INDICATION: Patient age:Male; 62 years old; Reason for study: R188 OTHER ASCITES; including cancer. COMPARISON: CT abdomen and pelvis 11/02/2022 PROCEDURE: Informed consent was obtained. The risks of the procedure were extensively explained incl uding risk of damage to surrounding bowel with perforation and need for additional procedures. Proced ure was performed in the ultrasound procedure suite. Ultrasound imaging of the abdomen demonstrate as citic fluid. An appropriate access site was localized to the right lower abdomen. Timeout was taken p er protocol. The skin was prepped and draped in the usual sterile fashion and then locally anesthetiz ed with 1% lidocaine. The peritoneal cavity was then accessed via a 5-Italian one-step needle/cathete r. Approximately 7.9 liters of clear straw-colored fluid was obtained. Samples were sent to the lab for analysis. Patient tolerated procedure well without immediate complication. Hemostasis at the procedural site w as obtained with a sterile bandage placed. The patient was monitored in the holding area following th e procedure and was subsequently discharged in stable condition. IMPRESSION: Ultrasound guided paracentesis, with approximately 7.9 liters of clear straw-colored fluid drained. P athology results pending. No immediate complications were evident.
[2022-11-19 05:32] LABS: Appearance,BF Clear (Clear)
== END 2022-11-18 11:15 | disposition home or self-care (01) ==
LOC: RADPROMAIN 08:56
PROVIDERS: ATTEND Internal Medicine
DX: R18.8 Other ascites (principal)
CPT/HCPCS: 36415; 49083; 82565; 85049; 85610; 89050

== ENCOUNTER 2022-12-03 12:25 | Day surgery (SDC) | payer BC ==
[2022-12-03 13:09] VITALS: RESP 16; TEMP 97.6
[2022-12-03 13:22] LABS: Platelet Count 256 k/uL (150-450)
[2022-12-03 13:25] LABS: INR 1.1 (<1.2); Prothrombin Time 11.3 sec (9.0-12.0)
--- NOTE | 2022-12-03 14:56 | US ---
Ultrasound-guided paracentesis. DATE OF EXAM: 12/03/2022 CLINICAL HISTORY: Ascites The procedure was discussed with the patient. The risks, complications, benefits, and alternatives we re discussed and any questions were answered. Informed consent was obtained. The patient was placed s upine on the ultrasound table and prepped and draped in the usual sterile fashion. All elements of maximal barrier technique were utilized. Under ultrasound guidance, access into the right lower quadrant was obtained, via the paracentesis catheter system and direct ultrasound guidanc e. Approximately 2.1 liters of straw-colored fluid was removed. The patient was stable throughout the pr ocedure and remained stable upon discharge from Department of Radiology. IMPRESSION: Successful paracentesis under ultrasound guidance.
[2022-12-03 15:07] VITALS: BP 133/89; PULSE 89
[2022-12-04 04:21] LABS: Appearance,BF Cloudy (Clear)
== END 2022-12-03 14:30 | disposition home or self-care (01) ==
LOC: RADPROMAIN 12:25
PROVIDERS: ATTEND Internal Medicine
DX: R18.8 Other ascites (principal)
CPT/HCPCS: 36415; 49083; 85049; 85610; 89050

== ENCOUNTER 2022-12-20 08:55 | Day surgery (SDC) | payer BC ==
[2022-12-20 09:59] LABS: Mean Platelet Volume 7.4; Platelet Count 148 k/uL (150-450)
[2022-12-20 10:16] LABS: Prothrombin Time 10.7 sec (9.0-12.0)
[2022-12-20 10:47] VITALS: BP 125/74; PULSE 76; RESP 16; TEMP 98
--- NOTE | 2022-12-20 10:53 | US ---
INDICATION: Patient age:Male; 62 years old; Reason for study: R18.8; [facility]. COMPARISON: CT abdomen pelvis 12/03/2022 TECHNIQUE: Multiple grayscale ultrasound images of both legs were obtained for the assessment of asci femi for paracentesis. FINDINGS/IMPRESSION: Small amount of ascites is identified within both flanks with right greater than left. Patient has significant amount pain after last paracentesis with only 2.1 L obtained. Discusse d proceeding with the procedure versus holding off for one week due to small amount of fluid. Patient states that they have been receiving diuretics during chemotherapy with decrease in ascites. Patient states that they have no significant symptoms at this time and agreed to follow up in one week for p ossible paracentesis. Paracentesis deferred at this time.
== END 2022-12-20 10:45 | disposition home or self-care (01) ==
LOC: RADPROMAIN 08:55
PROVIDERS: ATTEND Internal Medicine
DX: Z53.8 Procedure and treatment not carried out for other reasons (principal); R18.8 Other ascites
CPT/HCPCS: 36415; 76705; 85049; 85610

== ENCOUNTER 2022-12-27 08:55 | Day surgery (SDC) | payer BC ==
[2022-12-27 09:53] VITALS: BP 127/87; PULSE 76; RESP 18; TEMP 97.7
--- NOTE | 2022-12-27 14:39 | US ---
EXAM: US discontinued paracentesis DATE OF EXAM: 12/27/2022 11:03 AM COMPARISON STUDIES: 12/20/2022 PATIENT HISTORY: Possible paracentesis TECHNIQUE: Multiple grayscale ultrasound images of both legs were obtained for the assessment of asci femi for paracentesis. Findings: Small amount of ascites is identified within both flanks with right greater than left. Kelley ent has significant amount pain after last paracentesis with only 2.1 L obtained. Paracentesis deferr ed at this time. No significant change when compared to prior study of 12/20/2022. IMPRESSION: Deferred paracentesis given a small amount of intra-abdominal ascites.
== END 2022-12-27 09:40 | disposition home or self-care (01) ==
LOC: RADPROMAIN 08:55
PROVIDERS: ATTEND Internal Medicine
DX: Z53.8 Procedure and treatment not carried out for other reasons (principal); R18.8 Other ascites
CPT/HCPCS: 76705

== ENCOUNTER 2023-01-18 12:59 | Day surgery (SDC) | payer BC ==
[2023-01-18 14:04] LABS: Mean Platelet Volume 7.1; Platelet Count 257 k/uL (150-450)
[2023-01-18 14:13] LABS: Prothrombin Time 10.9 sec (9.0-12.0)
[2023-01-18 14:50] VITALS: RESP 16; TEMP 97.8
--- NOTE | 2023-01-18 15:12 | US ---
Ultrasound-guided paracentesis. DATE OF EXAM: 01/18/2023 CLINICAL HISTORY: Ascites The procedure was discussed with the patient. The risks, complications, benefits, and alternatives we re discussed and any questions were answered. Informed consent was obtained. The patient was placed s upine on the ultrasound table and prepped and draped in the usual sterile fashion. All elements of maximal barrier technique were utilized. Under ultrasound guidance, access into the right lower quadrant was obtained, via the paracentesis catheter system and direct ultrasound guidanc e. Approximately 2.1 liters of straw-colored fluid was removed. The patient was stable throughout the pr ocedure and remained stable upon discharge from Department of Radiology. IMPRESSION: Successful paracentesis under ultrasound guidance.
--- NOTE | 2023-01-18 15:12 | US ---
EXAMINATION TYPE: US chest DATE OF EXAM: 01/18/2023 COMPARISON: NONE CLINICAL INDICATION: Male, 62 years old with history of PLEURAL EFFUSION; pleural effusion TECHNIQUE: Targeted ultrasound of the posterior lower bilateral hemithoraces EXAM MEASUREMENTS: Left Pleural Effusion pocket size: 7.2 cm Left skin surface to fluid distance: 1.6 cm Pulmonologists are able to review the images in the patient?s EMR. IMPRESSIONS: Left pleural effusion.
[2023-01-18 15:25] VITALS: BP 115/73; PULSE 87
[2023-01-18 20:15] LABS: Glucose, BF Source Paracentesis Fluid; Glucose, Body Fluid 104 mg/dL; T. Protein, Body Fluid Source Paracentesis Fluid; Total Protein, Body Fluid >3600 mg/dL
[2023-01-18 22:05] LABS: Appearance,BF Cloudy (Clear)
== END 2023-01-18 15:20 | disposition home or self-care (01) ==
LOC: RADPROMAIN 12:59
PROVIDERS: ATTEND Internal Medicine
DX: R18.8 Other ascites (principal); J90 Pleural effusion, not elsewhere classified
CPT/HCPCS: 36415; 49083; 76604; 82945; 84157; 85049; 85610; 87070; 87075; 87205; 88108; 88305; 88341; 88342; 89050

== ENCOUNTER → 2023-01-19 | Day surgery (SDC) | payer BC ==
[2023-01-20 04:52] LABS: Appearance,BF Clear (Clear)
[2023-01-20 06:23] LABS: Glucose, BF Source Paracentesis Fl; Glucose, Body Fluid 100 mg/dL; T. Protein, Body Fluid Source Paracentesis Fl; Total Protein, Body Fluid >3600 mg/dL
== END ==
LOC: RADPROMAIN 14:37
PROVIDERS: ATTEND Internal Medicine
DX: Z53.9 Procedure and treatment not carried out, unspecified reason (principal)
CPT/HCPCS: 82945; 84157; 87070; 87075; 87205; 89050

== ENCOUNTER 2023-01-24 07:29 | Day surgery (SDC) | payer BC ==
[~2023-01-24 07:29] MED LIST changes: -ACETAMINOPHEN TAB 500 MG TAB PO ONE; +ACETAMINOPHEN TAB 500 MG TAB PO PRN; -DEXAMETHASONE SOD PHOSPHATE 10 MG/ML 1 ML VIAL IV ONE; +HEPARIN SODIUM,PORCINE/PF 5,000 UNIT/0.5 ML SYRINGE SQ PRN; +LIDOCAINE 1% (10MG/ML) FOR IV START INTRADERMA PRN; -LIDOCAINE 1% 20 ML VIAL (10MG/ML) FOR IV START INTRADERMA PRN; -MELOXICAM 7.5 MG TAB PO ONE; -MIDAZOLAM 2 MG/2 ML VIAL IV PRN; +Pre Op ABX Message 1 EACH MISC MISCELLANE ONE; -TRANEXAMIC ACID 1,000 MG in SODIUM CHLORIDE 0.9% 50 ML IVPB ONE; -ceFAZolin IN SWFI 2 GM/20 ML SYRINGE IVP ONE
[2023-01-24 08:43] LABS: Glucose,Whole Blood 102 mg/dL (70-110)
[2023-01-24 08:43] LABS: Anisocytosis Slight; Basophils % (A) 0 %; Eosinophils % (A) 1 %; HCT 34.7 % (39.0-53.0); HGB 11.7 gm/dL (13.0-17.5); Lymphocytes # (A) 0.7 k/uL (1.0-4.8); Lymphocytes % (A) 14 %; MCH 27.9 pg (25.0-35.0); MCHC 33.8 g/dL (31.0-37.0); MCV 82.6 fL (80.0-100.0); Mean Platelet Volume 7.3; Microcytosis Slight; Monocytes # (A) 0.5 k/uL (0-1.0); Monocytes % (A) 10 %; Neutrophils # (A) 3.4 k/uL (1.3-7.7); Neutrophils % (A) 73 %; RDW 18.6 % (11.5-15.5); WBC 4.6 k/uL (3.8-10.6)
--- NOTE | 2023-01-24 08:55 | P.GSHP ---
History of Present Illness H&P Date: 01/24/23 Chief Complaint: Pancreatic cancer 62-year-old male with somewhat recent diagnosis of pancreatic cancer. Patient is undergoing chemotherapy currently. He has poor IV access. He was advised to have a Port-A-Cath placed for that reason. He has not had one previously. Past Medical History Past Medical History: Cancer, GERD/Reflux, Osteoarthritis (OA), Prostate Disorder Additional Past Medical History / Comment(s): 04/07/15 Pt admitted to floor s/p total L knee arthroplasty. Other HX: elevated PSA, PAIN IN BILATERAL KNEES. 10/31-pancreatic cancer, pleural effusion, ascites both have been drained has a nother drainage due to be done 01/19/23 History of Any Multi-Drug Resistant Organisms: None Reported Past Surgical History: Appendectomy, Hernia Repair Additional Past Surgical History / Comment(s): Fausto knee replacement Other SX HX: HERNIA: BILATERAL ING & UMBILICAL. HAD RUPTURED APPENDIX:IN & OUT OF HOSPITAL WITH SEVERE ABD INFECTION AND THEN REMOVAL OF APPENDIX @ AGE 14 YR., Thoracentesis, paracentesis Past Anesthesia/Blood Transfusion Reactions: No Reported Reaction Additional Past Anesthesia/Blood Transfusion Reaction / Comment(s): no blood tx hx Smoking Status: Never smoker - Past Family History Mother Family Medical History: Cancer, CVA/TIA Additional Family Medical History / Comment(s): Mother has had TIA's. breast cancer hx Brother(s) Family Medical History: Diabetes Mellitus, Hypertension Father Family Medical History: Hypertension Additional Family Medical History / Comment(s): Father is 84 yrs old Sister(s) Family Medical History: No Reported History Daughter(s) Family Medical History: No Reported History Son(s) Family Medical History: No Reported History Medications and Allergies Home Medications Medication Instructions Recorded Confirmed Type Finasteride [Proscar] 5 mg PO DAILY 03/26/15 01/24/23 History Morphine Sulfate [Morphine Sulfate 30 mg PO BID 10/28/22 01/24/23 History ER] Pantoprazole [Protonix] 40 mg PO DAILY 10/28/22 01/24/23 History Ondansetron Odt [Zofran ODT] 8 mg PO TID 10/31/22 01/24/23 History HYDROcodone/APAP 10-325MG [[place] 1 tab PO Q6HR PRN 11/18/22 01/24/23 History 10-325] Lipase/Protease/Amylase [Tiff Kowalski 36,000 units PO TID 12/27/22 01/24/23 History 36,000 Unit Capsule] Sennosides-Docusate Sodium 17.2 mg PO BID 12/27/22 01/24/23 History [Senokot-S] polyethylene glycoL 3350 [Miralax] 17 gm PO DAILY 12/27/22 01/24/23 History Allergies Allergy/AdvReac Type Severity Reaction Status Date / Time diphenhydramine HCl AdvReac Hallucinati Verified 01/24/23 07:50 [From Benadryl] ons hydromorphone [From Dilaudid] AdvReac Nausea & Verified 01/24/23 07:50 Vomiting Surgical - Exam Vital Signs Temp Pulse Resp BP Pulse Ox 98.2 F 88 16 132/85 98 01/24/23 07:49 01/24/23 07:49 01/24/23 07:49 01/24/23 07:49 01/24/23 07:49 Physical exam: General: Well-developed, well-nourished HEENT: Normocephalic, sclerae nonicteric Abdomen: Nontender, nondistended Extremities: No edema Neuro: Alert and oriented Assessment and Plan (1) Pancreatic adenocarcinoma Narrative/Plan: Will proceed with Port-A-Cath placement at this time. Risks of bleeding, infection, DVT, pneumothorax, catheter malfunction, anesthesia related complications were discussed. The patient understands and wishes to proceed. Current Visit: No Status: Acute Code(s): C25.9 - MALIGNANT NEOPLASM OF PANCREAS, UNSPECIFIED SNOMED Code(s): 980006820
[2023-01-24] MEDS ORDERED: LIDOCAINE 1% INJ 10MG/ML (20 ML MDV) ONE (09:05)
[2023-01-24] MEDS ORDERED: HEPARIN SODIUM,PORCINE 5,000 UNIT/ML 1 ML VIAL ONE (09:05)
[2023-01-24] MEDS ORDERED: PROPOFOL 10 MG/ML 20 ML VIAL IV ONE (09:05)
[2023-01-24] MEDS ORDERED: MIDAZOLAM 2 MG/2 ML VIAL ONE (09:05)
[2023-01-24] MEDS ORDERED: fentaNYL (PF) 50 MCG/ML 2 ML AMP ONE (09:05)
[2023-01-24 09:07] LABS: African American GFR (CKD) >90 (>60 ml/min/1.73 sqM); Anion Gap 7 mmol/L; Blood Urea Nitrogen 11 mg/dL (9-20); Calcium 8.9 mg/dL (8.4-10.2); Carbon Dioxide 28 mmol/L (22-30); Chloride 101 mmol/L (98-107); Glucose 103 mg/dL (74-99); Non-African American GFR(CKD) >90 (>60 ml/min/1.73 sqM); Sodium 136 mmol/L (137-145)
[2023-01-24] MEDS ORDERED: LIDOCAINE 1% INJ 10MG/ML (30 ML VIAL-PF) SQ ONE (09:10)
[2023-01-24] MEDS ORDERED: ceFAZolin 1,000 MG VIAL IV ONE (09:10)
[2023-01-24 09:14] LABS: Platelet Count 122 k/uL (150-450)
[2023-01-24] MEDS ORDERED: HYDROcodone/APAP 5-325MG 1 EACH TAB PO PRN (10:06)
[2023-01-24] MEDS ORDERED: NALOXONE 0.4 MG/ML 1 ML VIAL IV PRN (10:06)
[2023-01-24] MEDS ORDERED: HYDROmorphone 1 MG/ML 1 ML SYRINGE IVP PRN (10:06)
--- NOTE | 2023-01-24 10:08 | P.OP ---
Date of Procedure: 01/24/23 Procedure(s) Performed: PREOPERATIVE DIAGNOSIS: Pancreatic cancer POSTOPERATIVE DIAGNOSIS: Same PROCEDURE: Port-A-Cath placement with fluoroscopic and ultrasound guidance SURGEON: Emely EBL: Minimal ANESTHESIA: General COMPLICATIONS: None OPERATIVE PROCEDURE: Patient was brought and placed on the operative table in the supine position. The patient was placed under general anesthesia at that time. The chest and neck were prepped and draped in usual sterile fashion. The ultrasound probe was used to identify the location of the right internal jugular vein. The skin was localized with lidocaine. The Seldinger needle was advanced into the IJ under ultrasound guidance. The wire was advanced through the needle under fluoroscopic guidance into the superior vena cava. A port pocket was created in the right infraclavicular location. The catheter was tunneled from the wire entrance site to the port pocket. The port was then connected to the catheter. The dilator introducer was threaded over the guidewire. The guidewire and dilator were then removed. The catheter was advanced through the introducer and introducer was then removed. The tip was seen to be in the right atrial junction via fluoroscopy. A picture of the radiograph showing the tip of the catheter was taken. Port was flushed with both saline and a Hep-Lock solution. There was good flow both in and out of the port. The port was sutured in underlying tissues using 3-0 silk sutures. The subcutaneous tissues were reapproximated using 3-0 Vicryl sutures and the skin at both locations using 4-0 Monocryl sutures. Skin glue and sterile dressings then applied. DISPOSITION: Stable to recovery room
[2023-01-24 10:12] VITALS: TEMP 97.4
[2023-01-24] MEDS ORDERED: ONDANSETRON 4 MG/2 ML VIAL ONE (10:59)
[2023-01-24] MEDS ORDERED: ONDANSETRON 4 MG/2 ML VIAL IVP ONE (11:00)
[2023-01-24] MEDS ORDERED: droPERidol 5 MG/2 ML VIAL IVP ONE (11:15)
--- NOTE | 2023-01-24 11:20 | XR ---
EXAMINATION TYPE: XR chest 1V confirm line [facility] DATE OF EXAM: 01/24/2023 11:12 AM COMPARISON: Chest radiographs from 11/01/2022 TECHNIQUE: XR chest 1V confirm line [facility] Portable AP radiograph of the chest. CLINICAL INDICATION:Male, 62 years old with history of Check line; FINDINGS: Lungs/Pleura: Right lung is clear. No pneumothorax. Blunting of the left costophrenic angle with flui d in the fissure and atelectasis within the left lower lung. Pulmonary vascularity: Unremarkable. Heart/mediastinum: Cardiomediastinal silhouette is stable. Atherosclerotic calcifications are seen i n the aorta. Musculoskeletal: No acute osseous pathology. Other findings: None Lines/Tubes: Agwsjh-e-[id number] projecting over the right hemithorax with distal tip at the cavoatrial junction. IMPRESSION: 1. Uhhoxp-o-[id number] projecting over the right hemithorax with distal tip at the cavoatrial junction. No pneumothorax. 2. Small left pleural effusion with associated atelectasis.
[2023-01-24 13:12] VITALS: BP 112/63; PULSE 67; RESP 18
--- NOTE | 2023-01-24 15:23 | FL ---
Intraoperative/procedural fluoroscopic services were provided right IJ central venous Mediport cathet er placement. Total fluoroscopy time is 6.5 seconds with a total of 1 submitted image to PACS. Total DAP 0.7013 Gycm2. Please see the operative note for further details.
== END 2023-01-24 13:00 | disposition home or self-care (01) ==
LOC: OR 07:29
PROVIDERS: ATTEND Surgery
DX: C25.2 Malignant neoplasm of tail of pancreas (principal); K21.9 Gastro-esophageal reflux disease without esophagitis; M19.90 Unspecified osteoarthritis, unspecified site; N40.0 Benign prostatic hyperplasia without lower urinary tract symptoms; Z88.5 Allergy status to narcotic agent; Z90.49 Acquired absence of other specified parts of digestive tract; Z88.8 Allergy status to other drugs, medicaments and biological substances; Z79.899 Other long term (current) drug therapy
CPT/HCPCS: 80048; 85025; 77001; 36561; C1788; J2250; J1644; J2405; J0690; J2001 ×2; J3010; J1642; J2704; J1790

== ENCOUNTER → 2023-02-17 | Outpatient (CLI) | payer BC ==
--- NOTE | 2023-02-18 08:16 | PE ---
EXAMINATION TYPE: PET CT fusion skull to thigh DATE OF EXAM: 02/17/2023 CLINICAL INDICATION:Male, 62 years old with history of C25.2 Pancreatic CA; TECHNIQUE: Following the intravenous administration of 12.5 mCi of F-18 FDG, whole body images are performed from the skull base to the midthigh. Images are reviewed on the computer in the coronal, a xial, and sagittal planes. Reconstructed rotating images are created on independent workstation and reviewed on the computer. A non-contrast CT is performed in conjunction with the PET scan. Glucose level 80 mg/dL CT DLP: 593 mGycm, Automated exposure control for dose reduction was used. COMPARISON: CT 12/03/2022, PET/CT 11/02/2022, FINDINGS: Mediastinal SUV mean is 1.6. Hepatic parenchyma SUV mean is 2.1. SKULL BASE AND NECK: No suspicious radiotracer activity. CHEST, MEDIASTINUM, AND HILAR REGION: No suspicious radiotracer activity. Uptake along the course of the right Dqzitm-[id number] is felt to be related to artifact. Located within the lumen of the superior v lee cava max SUV 5.4. ABDOMEN AND PELVIS: Scattered abnormal uptake throughout the liver. This has increased metabolic activity. Samples includ e: * New left hepatic lobe lesion max SUV 10.6. * New Right hepatic lobe along the capsule anteriorly max SUV 6.4 laterally max SUV 6.5. * Increasing size of dominant mass in the medial aspect of the right hepatic lobe max SUV 11.5, prev iously 4.3. * More posteriorly in the right hepatic lobe max SUV 9.8, previously 3.1. * These lesions have all increased in size in number. * Scattered areas of FDG activity which are hard to localize peritoneum and hazy mesentery. Some mil d uptake along the anterior peritoneal wall near the umbilicus max SUV 5.2. Which is not really seen on prior. * Focal uptake in the pancreatic tail max SUV 8.9, previously 4.1. MUSCULOSKELETAL STRUCTURES: No suspicious radiotracer activity. OTHER CT: Bilaterally aphakia. Atherosclerosis of the arterial vasculature. Right chest wall Infuse-a -Port with tip in appropriate position. Increasing right pleural effusion and decreased size of left pleural effusion. High density material within the gallbladder lumen could represent sludge. Ascites is seen throughout the abdomen. Prostatomegaly. Right renal cyst. IMPRESSION: 1. Findings of progressive disease with increasing size and number of liver lesions with some lesion s along the liver capsule and possibly within the peritoneum. Findings worsening omental caking. Ther e is also increasing metabolic activity in the pancreatic tail region which is felt to represent paola ent's primary malignancy. 2. Increasing size of right pleural effusion with a left pleural effusion has decreased slightly in size. 3. New ascites secondary to omental caking.
== END | disposition home or self-care (01) ==
LOC: RADPETMAIN 13:52
PROVIDERS: ATTEND Internal Medicine
DX: C25.2 Malignant neoplasm of tail of pancreas (principal); K76.9 Liver disease, unspecified; J90 Pleural effusion, not elsewhere classified; R18.8 Other ascites
CPT/HCPCS: 78815; A9552